=== PATIENT | female | born 1995 | race Caucasian/White ===

== ENCOUNTER → 2018-01-12 11:27 | Outpatient (REF) | payer BC, SELFPAY ==
[2018-01-13 14:28] LABS: Chlamydia Result Negative; GC Result Negative; Specimen Description CERVIX
== END ==
LOC: LBN 11:27
PROVIDERS: PCP Nurse Practitioner; Visit Provider Nurse Practitioner Family
DX: Z11.3 Encounter for screening for infections with a predominantly sexual mode of transmission (principal)
CPT/HCPCS: 87491; 87591

== ENCOUNTER 2018-11-17 14:58 | Outpatient (REF) | payer BC, SELFPAY ==
--- NOTE | 2018-11-17 14:45 | PAPFT_PTH ---
PATIENT: Leslie Lucero LOC: [facility] U#:[id number] AGE/SX: 23/F ROOM: RE11/17/[address]: LESIA Simpson : 1995 BED: DIS: 11/17/2018 SPEC #: [id number] RECD: 11/17/18 16:58 STATUS: ANH ORELLANA #: [id number] ASHLEY: 11/17/18 14:[address]: Mag Irwin DEPT: [facility] Cytology RECD BY: Kyra Cárdenas ENTERED: 11/17/18 16:58 SP TYPE: PAPFT DANNIELLE DR: Sapphire Vizcaino APRN Tissues: 1 - CX/ENDOCX FOR PAP SMEARS Procedures: PAP THIN PREP/UVM Screening Comments: [id number]
[2018-11-20 13:55] LABS: Chlamydia Result Negative; GC Result Negative
== END 2018-11-17 15:18 ==
LOC: LBN 14:58
PROVIDERS: PCP Nurse Practitioner; Visit Provider Nurse Practitioner Family
DX: Z11.3 Encounter for screening for infections with a predominantly sexual mode of transmission (principal); Z12.4 Encounter for screening for malignant neoplasm of cervix; Z11.51 Encounter for screening for human papillomavirus (HPV)
CPT/HCPCS: 87491; 87591; 88142

== ENCOUNTER 2019-09-20 10:30 | Outpatient (CLI) | payer BC, SELFPAY ==
--- NOTE | 2019-09-20 09:45 | DI.US_ITS ---
EXAM: US BREAST LT COMPLETE CLINICAL HISTORY: left breast lump,n63.20 TECHNIQUE: Ultrasound left breast performed using standard protocol. COMPARISON: No exams were available for comparison FINDINGS: In the area of concern in the left breast, no solid or cystic masses, hypoechoic foci, areas of abnor mal shadowing, or areas of skin thickening are identified. IMPRESSION: No sonographically suspicious finding in the imaged left breast. The findings were discussed with Dr. Gomez on the date of the examination. DATA REPOSITORY:
== END 2019-09-20 10:50 ==
PROVIDERS: PCP Nurse Practitioner; Visit Provider Nurse Practitioner Family
DX: N63.24 Unspecified lump in the left breast, lower inner quadrant (principal)
CPT/HCPCS: 76642

== ENCOUNTER 2020-04-30 15:37 | Outpatient (REF) | payer OTHER, SELFPAY ==
[2020-05-03 02:17] LABS: Chlamydia amplified RNA Negative (Negative); N gonorrhoeae amplified RNA Negative (Negative); Source CERVIX
== END 2020-04-30 15:57 ==
LOC: LBN 15:37
PROVIDERS: PCP Nurse Practitioner; Visit Provider Nurse Practitioner Women's Health
DX: Z11.3 Encounter for screening for infections with a predominantly sexual mode of transmission (principal)
CPT/HCPCS: 87491; 87591

== ENCOUNTER 2021-05-19 17:42 | Outpatient (REF) | payer OTHER, SELFPAY ==
[2021-05-21 16:19] LABS: COVID-19 RT-PCR UVMMC Result Negative (Negative)
== END 2021-05-19 17:43 | disposition home or self-care (01) ==
LOC: NCHCN 17:42
PROVIDERS: PCP Nurse Practitioner; Visit Provider Physician Assistant Medical
DX: Z20.822 Contact with and (suspected) exposure to COVID-19 (principal)
CPT/HCPCS: U0003

== ENCOUNTER 2021-07-23 12:24 | Outpatient (REF) | payer OTHER, SELFPAY ==
--- NOTE | 2021-07-23 10:15 | PAPFT_PTH ---
PATIENT: Leslie Lucero LOC: [facility] U#:[id number] AGE/SX: 25/F ROOM: RE07/23/[address]: LESIA Simpson : 1995 BED: DIS: 07/23/2021 SPEC #: [id number] RECD: 07/23/21 12:54 STATUS: ANH REQ #: [id number] ASHLEY: 07/23/21 10:[address]: Mag Irwin DEPT: [facility] Cytology RECD BY: Kyra Cárdenas ENTERED: 07/23/21 12:55 SP TYPE: PAPFT OTHR DR: Sapphire Vizcaino APRN Tissues: 1 - CX/ENDOCX FOR PAP SMEARS Procedures: PAP THIN PREP/UVM Screening Comments: [id number]
[2021-07-24 14:53] LABS: Chlamydia Result Negative (Negative); GC Result Negative (Negative)
== END 2021-07-23 12:25 | disposition home or self-care (01) ==
LOC: LBN 12:24
PROVIDERS: PCP Nurse Practitioner; Visit Provider Nurse Practitioner Family
DX: Z11.3 Encounter for screening for infections with a predominantly sexual mode of transmission (principal); Z12.4 Encounter for screening for malignant neoplasm of cervix
CPT/HCPCS: 87491; 87591; 88142

== ENCOUNTER 2022-05-11 04:03 | Outpatient (CLI) | payer OTHER, SELFPAY ==
[2022-05-11 16:28] LABS: Panorama Kit Sent via Fed Ex
[2022-05-11 16:39] LABS: Abs Immature Grans 0.03 10^3/uL (0.0-0.06); Absolute Basophil Count 0.06 10^3/uL (0.0-0.2); Absolute Eosinophil Count 0.12 10^3/uL (0.0-0.7); Absolute Lymphocyte Count 2.86 10^3/uL (1.2-3.4); Absolute Monocyte Count 0.57 10^3/uL (0.1-0.8); Absolute Neutrophil Count 5.97 10^3/uL (1.2-6.7); Basophils % 0.6; Eosinophils % 1.2; HCT 35.5 % (36.0-46.0); HGB 12.5 g/dL (11.2-15.7); Immature Grans % 0.3; Lymphocytes % 29.8; MCH 31.4 pg (27.0-33.0); MCHC 35.2 % (32.0-36.0); MCV 89 fL (80-95); MPV 10.6 fL (8.0-11.0); Monocytes % 5.9; Neutrophils % 62.2; Platelet Count 271 10^3/uL (130-400); RBC 3.98 10^6/uL (3.93-5.22); RDW 11.7 % (11.7-14.6); RDW-SD 37.9 fL; WBC 9.61 10^3/uL (4.4-10.8)
[2022-05-13 10:11] LABS: Varicella IgG Antibody Positive (See Note)
[2022-05-13 10:36] LABS: HIV-1/2 Ag & Ab Screen Negative (Negative)
[2022-05-13 12:51] LABS: Rubella IgG Ab (UVM) Equivocal (See Note)
[2022-05-13 16:04] LABS: Hepatitis B Surface Ag Negative (Negative)
[2022-05-13 16:26] LABS: Hepatitis C Ab w Rflx HCV PCR Negative (Negative)
[2022-05-13 19:30] LABS: Syphilis IgG w/Reflex Nonreactive (Nonreactive)
[2022-06-15 18:16] LABS: Result Summary NEGATIVE; Specimen WB Whole Blood
== END 2022-05-11 04:04 | disposition home or self-care (01) ==
LOC: LBO 04:03
PROVIDERS: PCP Nurse Practitioner; Visit Provider Advanced Practice Midwife
DX: Z34.91 Encounter for supervision of normal pregnancy, unspecified, first trimester (principal); Z36.89 Encounter for other specified antenatal screening; Z3A.11 11 weeks gestation of pregnancy
CPT/HCPCS: 36415; 81220; 81222; 86787; 86803; 86850; 86900; 86901; 87340; 87389; 85025; 86762; 86780

== ENCOUNTER 2022-05-11 16:47 | Outpatient (REF) | payer OTHER, SELFPAY ==
[2022-05-11 17:47] LABS: *AMPHETAMINES SCREEN URINE Negative (Negative); *BARBITURATES SCREEN URINE Negative (Negative); *BENZODIAZEPINES SCREEN URINE Negative (Negative); Cannabinoids THC Negative (Negative); Cocaine Screen,Urine Negative (Negative); METHADONE URINE SCREEN Negative (Negative); OPIATES URINE SCREEN Negative (Negative)
[2022-05-11 17:49] LABS: Tricyclic Antidepressants Negative (Negative)
[2022-05-19 09:25] LABS: Buprenorphine Negative ng/mL (Cutoff: 5.0); Norbuprenorphine Negative ng/mL (Cutoff: 2.5)
== END 2022-05-11 16:48 | disposition home or self-care (01) ==
LOC: LBN 16:47
PROVIDERS: PCP Nurse Practitioner; Visit Provider Advanced Practice Midwife
DX: Z34.91 Encounter for supervision of normal pregnancy, unspecified, first trimester (principal); Z3A.11 11 weeks gestation of pregnancy
CPT/HCPCS: 80307; 80348; 87086

== ENCOUNTER 2022-06-17 02:25 | Outpatient (CLI) | payer BC, SELFPAY ==
[2022-06-21 11:00] LABS: Cigarette smoking status non-Smoker; GA used in risk estimate Dates estimate; IVF Pregnancy No; Initial or repeat testing Initial testing; Insulin dependent diabetes No; Maternal Weight 115 lbs; Number of Fetuses 1; Physician Phone Number 802-748-7300; Prev Pregnancy w/NTD No; RECOMMENDED FOLLOW UP None.; Results Summary Normal risk
== END 2022-06-17 02:26 | disposition home or self-care (01) ==
LOC: LBO 02:25
PROVIDERS: PCP Nurse Practitioner; Visit Provider Advanced Practice Midwife
DX: Z34.92 Encounter for supervision of normal pregnancy, unspecified, second trimester (principal)
CPT/HCPCS: 36415; 82105

== ENCOUNTER 2022-06-22 13:53 | Outpatient (REF) | payer BC, SELFPAY ==
[2022-06-23 22:20] LABS: Influenza A RNA Result Negative (Negative); Influenza B RNA Result Negative (Negative); RSV RNA Result Positive (Negative)
[2022-06-23 22:31] LABS: COVID-19 RT-PCR UVMMC Result Negative (Negative)
== END 2022-06-22 13:54 | disposition home or self-care (01) ==
LOC: LBN 13:53
PROVIDERS: PCP Nurse Practitioner; Visit Provider Nurse Practitioner
DX: Z20.822 Contact with and (suspected) exposure to COVID-19 (principal); J02.9 Acute pharyngitis, unspecified; R05.9 Cough, unspecified; R06.02 Shortness of breath
CPT/HCPCS: 87631; U0003

== ENCOUNTER 2022-07-14 02:33 | Outpatient (CLI) | payer BC, SELFPAY ==
--- NOTE | 2022-07-14 08:00 | DI.US_ITS ---
Exam(s) US OB 2-3 TRIMESTER EXAM: US OB 2-3 TRIMESTER CLINICAL HISTORY: anatomy,Z34.92. TECHNIQUE: Transabdominal obstetrical ultrasound performed. COMPARISON: No exams were available for comparison FINDINGS: Number of fetuses: One. position: Variable Placental grade: 1 Placental location: Posterior. No evidence of previa. BIOMETRIC DATA: BPD: 50mm = 21+1 weeks HC: 188mm = 21+1 weeks AC: 173mm = 22+2 weeks FL: 39mm = 20+ 5 weeks Cisterna Magna: 3.8 mm Cerebellum: 2.2 cm EFW: 426 grms 77% Composite Age: 21+2 weeks EDC by US: December 03 Heart Rate: 145BPM Amniotic fluid : Amount of fluid is within normal limits. ANATOMICAL SURVEY: Four-chambered heart: Unremarkable. LVOT: Unremarkable. RVOT: Unremarkable. Left-sided stomach: Unremarkable. urinary bladder: Unremarkable. Bilateral kidneys: Dilatation of the left renal pelvis 7 millimeters related to the taken of th e right renal pelvis 5 millimeters. Three-vessel cord: Unremarkable. Cord insertion: Unremarkable. Posterior fossa:Unremarkable. ventricles: Unremarkable. nose: Unremarkable. lips: Unremarkable. palate: Unremarkable. spine: Unremarkable. Two arms and two legs: Unremarkable. IMPRESSION: 1. Single live intrauterine gestation with composite age 21 weeks 2 days.. 2. Bilateral dilatation of the renal pelves. Follow-up recommended. DATA REPOSITORY:
== END 2022-07-14 02:53 ==
PROVIDERS: PCP Nurse Practitioner; Visit Provider Advanced Practice Midwife
DX: Z34.92 Encounter for supervision of normal pregnancy, unspecified, second trimester (principal); Z3A.21 21 weeks gestation of pregnancy
CPT/HCPCS: 76805

== ENCOUNTER 2022-08-06 15:37 | Outpatient (REF) | payer BC, SELFPAY ==
[2022-08-06 15:01] LABS: Bilirubin Negative (Negative); Blood Small (Negative); Clarity Clear (Clear); Glucose Negative (Negative); Ketones Negative (Negative); Leukocyte Esterase Negative (Negative); Nitrite Negative (Negative); Specific Gravity 1.015 (1.005-1.025); Urobilinogen 0.2 mg/dL (Up to 0.2)
[2022-08-06 15:09] LABS: Bacteria Few HPF (Negative); C & S Indicated? C&S Done As Ordered; Epithelial Cells Few HPF (Negative); WBC 0-2 HPF (0-5)
[2022-08-06 16:22] LABS: Crystals Negative HPF (Negative); Mucus Negative (Negative)
== END 2022-08-06 15:38 | disposition home or self-care (01) ==
LOC: NCHCN 15:37
PROVIDERS: PCP Nurse Practitioner; Visit Provider Advanced Practice Midwife
DX: R30.0 Dysuria (principal)
CPT/HCPCS: 81003; 81015; 87086

== ENCOUNTER 2022-08-07 09:42 | Outpatient (REF) | payer BC, SELFPAY | END 2022-08-07 09:43 | disposition home or self-care (01) | LOC: LBN 09:42 | PROVIDERS: PCP Nurse Practitioner; Visit Provider Physician Assistant | DX: N39.0 Urinary tract infection, site not specified (principal) | CPT/HCPCS: 87086 ==

== ENCOUNTER 2022-08-07 10:03 | Outpatient (CLI) | payer BC, SELFPAY ==
[2022-08-07 10:27] VITALS: BP 110/68; PULSE 70; TEMP 36.9
--- NOTE | 2022-08-07 11:44 | PDOC.NST_ITS ---
Date of service: 08/07/22 Time of Service: 11:45 NST Evaluation Reason for NST Reasons for Nonstress Test: LABOR Gestational Age Gestational Age in Weeks and Days: 24 Weeks and 2Days Test and Monitor Explained Test/Monitor Explained: Test Explained, Monitor Explained and Patient Verbalized Understanding Vital Signs Blood Pressure: 110/68 Pulse: 70 Temperature: 98.4 F Urine Results Urine Protein: Negative Urine Ketones: Negative Urine Glucose: Negative Urine Blood: Positive (trace/small) NST Information Time on Monitor: 10:40 Date off Monitor: 08/07/22 Time off Monitor: 11:20 NST Interventions: PO Hydration Contraction Frequency: 0 NST Evaluation Patient States Movement: Present FHR Baseline: 140 Variability: Moderate 6-25 bpm Accelerations: 10x10 Decelerations: None NST Results: Reactive Note N/A NST Note Note: VPS and CT/GC collected Cvx closed/thick, cephalic presentation, not in the pelvis UA neg other then trace heme Right side round ligament pain, lower right side back discomfort likely musculoskeletal CVAT neg, UC&S preliminary report=no growth Advised to push PO fluid intake, tylenol, wall-sits and squats to stretch back and strengthen legs Keep appt with mixer operator vacuum pan salt as scheduled next week NST Reviewed and Verified by: Ashley Allred
[2022-08-07 11:50] VITALS: BP 110/68; PULSE 70; TEMP 36.9
[2022-08-09 12:42] LABS: Chlamydia Result Negative (Negative); GC Result Negative (Negative)
== END 2022-08-07 11:45 | disposition home or self-care (01) ==
LOC: BCD 10:03 → OBS 10:13
PROVIDERS: PCP Nurse Practitioner; Visit Provider Advanced Practice Midwife
DX: O47.02 False labor before 37 completed weeks of gestation, second trimester (principal); Z3A.24 24 weeks gestation of pregnancy
CPT/HCPCS: 59025; 87491; 87591; 87480; 87510; 87660

== ENCOUNTER 2022-09-01 03:28 | Outpatient (CLI) | payer BC, SELFPAY ==
[2022-09-01 08:49] LABS: HCT 35.5 % (36.0-46.0); HGB 12.1 g/dL (11.2-15.7); MCH 31.2 pg (27.0-33.0); MCHC 34.1 % (32.0-36.0); MCV 92 fL (80-95); MPV 10.9 fL (8.0-11.0); Platelet Count 212 10^3/uL (130-400); RBC 3.88 10^6/uL (3.93-5.22); RDW 12.7 % (11.7-14.6); RDW-SD 42.5 fL; WBC 8.74 10^3/uL (4.4-10.8)
[2022-09-01 10:02] LABS: Glucose,1 Hr (Glucola) 117 mg/dL (80-140)
== END 2022-09-01 03:29 | disposition home or self-care (01) ==
LOC: LBO 03:28
PROVIDERS: PCP Nurse Practitioner; Visit Provider Advanced Practice Midwife
DX: Z34.92 Encounter for supervision of normal pregnancy, unspecified, second trimester (principal); Z3A.27 27 weeks gestation of pregnancy
CPT/HCPCS: 36415; 82950; 85027

== ENCOUNTER 2022-09-07 11:47 | Outpatient (REF) | payer BC, SELFPAY ==
[2022-09-09 15:58] LABS: COVID-19 RT-PCR UVMMC Result Positive (Negative)
== END 2022-09-07 11:48 | disposition home or self-care (01) ==
LOC: NCHCN 11:47
PROVIDERS: PCP Nurse Practitioner; Visit Provider Physician Assistant Medical
DX: Z20.822 Contact with and (suspected) exposure to COVID-19 (principal)
CPT/HCPCS: U0003

== ENCOUNTER 2022-10-28 02:00 | Outpatient (CLI) | payer BC, SELFPAY ==
--- NOTE | 2022-10-28 07:00 | DI.US_ITS ---
Exam(s) US OB BORIS WEIGHT EXAM: US OB BORIS WEIGHT CLINICAL HISTORY: covid infection in ,U07.1,O98.513. TECHNIQUE: Transabdominal obstetrical ultrasound performed. COMPARISON: US US OB F/U FACIAL/LVOT/RVOT from 09/01/2022 FINDINGS: Number of fetuses: 1 position: CEPHALIC Placental location: There is a grade 2 fundal placenta. No evidence of previa. BIOMETRIC DATA: BPD: 8.64cm, 34weeks 6days HC: 33.23cm, 37weeks 6days AC: 32.17cm, 36weeks 1day FL: 6.75cm, 34weeks 5days EFW: 2,767.83g, 6lb 2.4oz, 44.9% Composite Age: 35weeks 6days GENO: 11/26/2022 Heart Rate: 131bpm Amniotic fluid index: 17.75cm. Visually, amount of fluid is within normal limits. IMPRESSION: 1. Single live intrauterine gestation as above. 2. Estimated weight is 2768gms. This is the 45th percentile. 3. Amniotic fluid index is 18 cm. Visually within normal limits. DATA REPOSITORY:
== END 2022-10-28 02:20 ==
LOC: DI 02:00
PROVIDERS: PCP Nurse Practitioner; Visit Provider Advanced Practice Midwife
DX: O98.513 Other viral diseases complicating pregnancy, third trimester (principal); U07.1 COVID-19
CPT/HCPCS: 76816

== ENCOUNTER 2022-10-29 16:17 | Outpatient (REF) | payer BC, SELFPAY ==
[2022-10-29 18:06] LABS: *AMPHETAMINES SCREEN URINE Negative (Negative); *BARBITURATES SCREEN URINE Negative (Negative); *BENZODIAZEPINES SCREEN URINE Negative (Negative); Cannabinoids THC Negative (Negative); Cocaine Screen,Urine Negative (Negative); METHADONE URINE SCREEN Negative (Negative); OPIATES URINE SCREEN Negative (Negative)
[2022-10-29 18:07] LABS: Tricyclic Antidepressants Negative (Negative)
[2022-11-05 08:42] LABS: Buprenorphine Negative ng/mL (Cutoff: 5.0); Norbuprenorphine Negative ng/mL (Cutoff: 2.5)
== END 2022-10-29 16:18 | disposition home or self-care (01) ==
LOC: LBN 16:17
PROVIDERS: PCP Nurse Practitioner; Visit Provider Advanced Practice Midwife
DX: Z34.93 Encounter for supervision of normal pregnancy, unspecified, third trimester (principal); Z36.85 Encounter for antenatal screening for Streptococcus B; Z3A.36 36 weeks gestation of pregnancy
CPT/HCPCS: 80307; 80348; 87081

== ENCOUNTER 2022-11-08 14:33 | Inpatient (IN) | payer BC, SELFPAY ==
[2022-11-08] VITALS (92 sets, daily range): BP systolic 102–140; BP diastolic 55–91; PULSE 72–106; RESP 16; TEMP 36.4–36.8; O2SAT 98–100
[2022-11-08 13:29] LABS: HCT 37.5 % (36.0-46.0); HGB 12.5 g/dL (11.2-15.7); MCH 30.7 pg (27.0-33.0); MCHC 33.3 % (32.0-36.0); MCV 92 fL (80-95); MPV 11.6 fL (8.0-11.0); Platelet Count 140 10^3/uL (130-400); RBC 4.07 10^6/uL (3.93-5.22); RDW 12.7 % (11.7-14.6); RDW-SD 43.2 fL; WBC 11.31 10^3/uL (4.4-10.8)
[2022-11-08 13:42] LABS: ALT 126 U/L (14-59); AST 95 U/L (15-37); Albumin 2.7 g/dL (3.4-5.0); Alkaline Phosphatase 275 U/L (46-116); Amylase 51 U/L (25-115); Anion Gap 7.6 mmol/L (3-11); BUN 8 mg/dL (7-18); Bilirubin, Total 0.4 mg/dL (0.2-1.0); CO2 27.4 mmol/L (21.0-32.0); CREATININE 0.9 mg/dL (0.55-1.02); Calcium 8.7 mg/dL (8.5-10.1); Chloride 104 mmol/L (98-107); Estimated GFR 90.98 (mL/min/1.73m2); Glucose 77 mg/dL (74-106); Lipase 22 U/L (16-77); Potassium 3.8 mmol/L (3.5-5.1); Sodium 139 mmol/L (136-145); Total Protein 7.1 g/dL (6.4-8.2)
--- NOTE | 2022-11-08 14:43 | W.PM.OBHPL1 ---
Date of service: 11/08/22 Time of Service: 14:20 Assessment and Plan Assessment and plan (1) HELLP syndrome (HELLP), third trimester: Status: Acute Assessment and plan: 1. Consult with Dr. Lewis done by phone. Will admit for induction of labor and infuse magnesium sulfate for potential seizure prevention 2. Will do repeat labs 6 hours after Magnesium starts with mag level, CMP and CBC 3. Will begin pitocin at 2 mu 4. Will begin Magnesium with 4 gm bolus then 2 gm / hour 5. Continuous EFM 6. Hourly intake and output 7. Will notify Dr. Lewis of any changes as indicated. KH OB-HPI Labor/Delivery History of Present Illness Reason for Visit: HELLP syndrome in third trimester Chief Complaint: Other (upper back pain started a couple of days ago). GENO Calculator Estimated Delivery Date Method Current WG Current Estimate 11/25/22 LMP (Certain) 37w 4d Other Estimates 11/25/22 Ultrasound #1 37w 4d Comments: Leslie Lucero presented for NST and assessment of persistent upper back pain that started Tuesday evening. She used tylenol and rest with moderate relief but called CNM today with continued pain and need to take tylenol every 4 hours. Denies RIDDLE, visual changes. States yesterday pain was across upper back and thought it was her ribs stretching but today slightly more on her right. Baby as been active. She is having occasional contractions. Denies LOF or vaginal bleeding. I reviewed that the labs done during NST are consistent with HELLP syndrome and it is indicated to induce labor and use magnesium sulfate for prevention of seizures. I reviewed risks of hemolysis and worsening liver disease and that delivery is considered the treatment. She agrees to admission and moving forward with induction and magnesium sulfate therapy. Dr. Lewis notified. Will do consult with anesthesia and inform pediatric provider collection systems technician of the plan for care. SIN History of Present Expected Delivery Route/Plan - CNM FOB/ - Jordan Lucero (first child) BB yes to circ Rubella immunity equivocal, offer MMR Hopes to use the tub and nitrous oxide, on line videos for childbirth preparation GBS negative Specific Issues/Plan 1. Hx scoliosis & right side sciatica, @ 16 wks pt reports no pain 2. Panorama: low risk x5, male, CF negative, declines SMA, desires AFP - neg 3. Rubella immunity is equivocal, discussed w/pt, accepts MMR 4. Pt's sister and niece have 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, [facility] [place] referral ordered 4a. Consult done 06/28/22, low to no risk to pt's fetus as pt does not appear to have the microdeletion in question 5. RSV infection at 18 wks of 6. Anatomy survey reveals bilateral renal dilation; repeat scan scheduled 09/01 Improved. 4.5 mm right, 6.2mm left 7. Right flank pain - maternal kidney US- mild bilateral hydronephrosis, right greater than left 8. COVID + 09/06/22, 36 week US scheduled-BORIS 18 and EFW 45%ile. 9. Brown spotting after intercourse x 1 day at 33 weeks. 10. Scoliosis - PT when she was younger. Met with Dev from anesthesia 10/29. No concerns. Assessment: History Reviewed & Current Informed Consent Informed Consent: Induction of Labor, Risk,Benefits,Alternatives Discussed and Other (Magnesium sulfate therapy) Review of Systems All systems reviewed & are unremarkable except as noted in HPI and below Constitutional Constitutional: Reports poor appetite Eyes Eyes: Reports as per HPI ENT Ears, Nose, Mouth, and Throat: Reports as per HPI Cardiovascular Cardiovascular: Reports as per HPI Respiratory Respiratory: Reports as per HPI Gastrointestinal Gastrointestinal: Reports as per HPI Genitourinary Genitourinary: Reports as per HPI Musculoskeletal Musculoskeletal: Reports as per HPI and Reports back pain (upper back) Neurologic Neurologic: Reports as per HPI Psychiatric Psychiatric: Reports as per HPI Hematologic/Lymphatic Hematologic/Lymphatic: Reports as per HPI PFSH All Active Problems (Updated 11/08/22 @ 14:53 by Nancy Diaz CNM) HELLP syndrome (HELLP), third trimester (Acute) (Acute) COVID-19 affecting in third trimester (Acute) + antigen 09/06 + PCR 09/07 symptoms began 09/06, declined paxlovid Right flank pain (Acute) Dysuria (Acute) Pyelectasis of fetus on ultrasound (Acute) RSV infection (Acute) at 18 weeks of Perioral dermatitis (Acute) Rubella non-immune status, antepartum (Acute) (Acute) Anxiety and depression (Chronic) Tobacco abuse (Acute 01/26/18) Acne (Acute 01/26/18) Medical History Allergic rhinitis Pollen and Dust Chronic headache Contraception (03/25/15) Family history of chromosomal abnormality 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 Positive test Scoliosis Surgical History Hope Teeth Extraction Family History Mother Headache Mental disorder Panic Attacks Paternal Grandfather Myocardial infarction Suddenly of Stroke or Heart Attack Stroke Paternal Grandmother Neoplasm Breast cancer Cancer neck cancer Maternal Aunt Cancer ovarian Maternal Aunt Cancer kidney cancer Maternal Grandmother Diabetes Social History Smoking/Tobacco Use Status: Former Tobacco Use Quit Date: 12/26/19 Tobacco: How many years used: 6 Smoking risk assessment performed?: Yes Drug use: Never Female Reproductive History Menstrual Duration of menses: 3-5 days control method: pills History History 1 Para 0 Hx # Term Pregnancies 0 Multiple births 0 Hx # Pregnancies 0 Ectopic pregnancies 0 AB induced 0 Hx Number of Living Children 0 AB spontaneous 0 Meds Allergies and Home Medications Allergies Allergy/AdvReac Type Severity Reaction Status Date / Time pollen Allergy sneezing, Uncoded 11/08/22 14:50 itchy eyes Home Medications Medication Instructions Recorded Confirmed Type triamcinolone acetonide 0.1 % 1 applic topical DAILY PRN 08/12/22 11/04/22 History topical cream prenat.vits,jo,yhp-xasc-ivozt 1 tab PO DAILY #90 tabs 08/20/22 11/04/22 Rx cholecalciferol (vitamin D3) 50 50 mcg PO DAILY 09/30/22 11/04/22 History mcg (2,000 unit) tablet Exam Physical Exam Vital signs: Pulse BP 90 130/84 11/08/22 13:33 11/08/22 13:33 Vital Signs Reviewed: Yes Constitutional Constitutional: mild distress (uncomfortable due to back pain) Detailed Labor and Delivery Exam Dilation: 2 Effacement (%): 80 station: -1 Position: SYBIL Cervix position: posterior Consistency: soft Barnes Score: Cervical Points Exam 0 1 2 3 Dilation Closed 1-2cm 3-4 cm 5-6cm Effacement 0-30% 40-50% 60-70% 80% Consistency Firm Medium Soft Station -3 -2 -1,0 +1,+2 Position Posterior Mid Anterior BARNES Score(Cervical Ripeness Score): 8 Amniotic Membrane Status: Intact Monitor Mode: External Contraction Frequency(min): irregular Contraction Duration(sec): irregular Contraction Intensity: Mild Fetus A Heart Rate Baseline: 120 Monitor Accelerations: 15 X 15 Monitor Decelerations: None Variability: Moderate (6-25 BPM) Categories: Category I Est. Weight: 6 lb 6 oz HEENT Exam HEENT Exam: Normal Neck Exam Neck Exam: Normal Chest/Brest/Axilla Exam Chest Exam: Normal Breast Exam Breast Exam: Not Done Respiratory Exam Respiratory Exam: Normal Cardiovascular Exam Cardiovascular Exam: Abnormal (mild BP elevation noted) Abdominal Exam Abdominal Exam: Normal (gravid uterus, size equals dates) Rectal Exam Rectal Exam: Not Done Exam Exam: Normal Extremities Exam Extremities Exam: Normal Back/Spine/Pelvis Exam Back Exam: Normal Pelvis Adequate: Yes Skin Exam Skin Exam: Normal (no evidence of jaundice) Neurological Exam Neurological Exam: Normal Psychiatric Exam Psychiatric Exam: Normal Results Results Group Beta Strep: Negative Blood Type: O+ Rubella Status: Nonimmune Varicella Immunity: Immune Lab Results: Hepatitis B&C neg, Syphilis neg, HIV neg, GC CT neg, cfDNA Low Risk male gender, 1H GTT 117 Abnormal Lab Findings: Abnormal Labs 11/08/22 11/08/22 13:18 13:18 WBC 11.31 H MPV 11.6 H AST 95 H ALT 126 H Alkaline Phosphatase 275 H Albumin 2.7 L Risk Assessment Risk for Shoulder Dystocia Historical/Initial OB: NEGATIVE FOR: Pelvic Abnormality, Pre- BMI>30, Previous Shoulder Dystocia or Previous Macrosomia 40 Weeks: NEGATIVE FOR: EFW> 4500 gms, Maternal Weight Gain >40lb or Post Dates Date/Initial: 05/10/22 Delivery Plan @ 40 wks: vaginal delivery Risk for Pre-Eclampsia Date Initiated/Initials: Yes, if one or more: NEGATIVE FOR: Hx Pre-E/Gest HTN, Chronic HTN, Multiple Gestation, Pre-gestational DM, Renal Disease, Systemic Lupus or APA Syndrome Yes, if 2 or more: POSITIVE FOR: Nulliparity; NEGATIVE FOR: Age>= 35 yrs, >10yr btwn pregnancies, BMI>30, ethinicty, Mother/Sister w/ Pre-E or Previous IUGR Risk for Post- Hemorrhage Initial: NEGATIVE FOR: Multiple Gestation, Previous PPH, Known Clotting Deficiency, Grand Multiparity or Anticoagulation At Risk?: Yes (mildly low platelets on admission) Date/Initials: 05/10/22 Risks Reviewed Risks Reviewed Upon Admission: Yes
[2022-11-08] MEDS: MAGNESIUM SULFATE 20 GM/500 ML BAG IV ×2 (15:15→23:11)
[2022-11-08] MEDS: Oxytocin/Normal Saline 30 UNIT/500 ML BAG 2 UNITS IV (15:30)
[2022-11-08] MEDS: Lactated Ringers 1,000 ML 125 ML IV ×2 (15:46→22:51)
--- NOTE | 2022-11-08 16:29 | W.OBNST ---
Date of service: 11/08/22 Time of Service: 14:15 NST Evaluation Reason for NST Reasons for Nonstress Test: OTHER, SEE COMMENT Reason for NST Other: RUQ pain Gestational Age Gestational Age in Weeks and Days: 42 Weeks and 0Days Test and Monitor Explained Test/Monitor Explained: Test Explained, Monitor Explained and Patient Verbalized Understanding Vital Signs Blood Pressure: 136/91 Pulse: 86 Temperature: 97.9 F Urine Results Urine Protein: Negative Urine Ketones: Negative Urine Glucose: Negative Urine Blood: Negative NST Information Date on Monitor: 11/08/22 Time on Monitor: 13:05 Date off Monitor: 11/08/22 Time off Monitor: 14:15 Total Time on Monitor: 70 NST Interventions: PO Hydration and Notify Provider Contraction Frequency: occasional NST Evaluation Patient States Movement: Present FHR Baseline: 130 Variability: Moderate 6-25 bpm Accelerations: 15x15 Decelerations: None NST Results: Reactive Note Ultrasound Done: N/A. NST Note Note: NST is reactive and reassuring. Plan to admit for induction of labor. See H&P NST Reviewed and Verified by: Nancy Diaz
--- NOTE | 2022-11-08 16:37 | PGE_ITS ---
Date of service: 11/08/22 Time of Service: 16:38 Informed Consent Informed Consent: Induction of Labor, Risk,Benefits,Alternatives Discussed and Other (Magnesium sulfate therapy) Pelvic Exam Comments: VE deferred Contractions Monitor Mode: External Contraction Frequency(min): 2-5 Contraction Duration(sec): 60-90 Intensity: Mild/Moderate Fetus A Monitor: External (US) Heart Rate Baseline: 105 Variability: Moderate (6-25 BPM) Categories: Category II (low baseline, likely due to Mag sulfate) Accelerations: Present Decelerations: None Amniotic Membrane Status: Intact Assessment and Plan Assessment and plan (1) HELLP syndrome (HELLP), third trimester: Status: Acute Assessment and plan: 1. magnesium bolus is done and now infusing at 2G/Hr 2. Pitocin is being increased every 30 minutes 3. FHR baseline has decreased. 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 Lewis who agrees that this is likely due to Magnesium sulfate and does not feel we need to change current plan of care 4. Will continue to increase pitocin and expect NVD. KH Objective Abnormal lab results 11/08/22 11/08/22 Range/Units 13:18 13:18 WBC 11.31 H (4.4-10.8) 10^3/uL MPV 11.6 H (8.0-11.0) fL AST 95 H (15-37) U/L ALT 126 H (14-59) U/L Alkaline Phosphatase 275 H (46-116) U/L Albumin 2.7 L (3.4-5.0) g/dL Temp Pulse Resp BP Pulse Ox 97.9 F 78 16 102/61 100 11/08/22 15:50 11/08/22 16:36 11/08/22 16:15 11/08/22 16:35 11/08/22 16:36 Laboratory Results WBC 11.31 10^3/uL (4.4-10.8) H 11/08/22 13:18 RBC 4.07 10^6/uL (3.93-5.22) 11/08/22 13:18 Hgb 12.5 g/dL (11.2-15.7) 11/08/22 13:18 Hct 37.5 % (36.0-46.0) 11/08/22 13:18 MCV 92 fL (80-95) 11/08/22 13:18 MCH 30.7 pg (27.0-33.0) 11/08/22 13:18 MCHC 33.3 % (32.0-36.0) 11/08/22 13:18 RDW 12.7 % (11.7-14.6) 11/08/22 13:18 Plt Count 140 10^3/uL (130-400) 11/08/22 13:18 MPV 11.6 fL (8.0-11.0) H 11/08/22 13:18 Sodium 139 mmol/L (136-145) 11/08/22 13:18 Potassium 3.8 mmol/L (3.5-5.1) 11/08/22 13:18 Chloride 104 mmol/L (98-107) 11/08/22 13:18 Carbon Dioxide 27.4 mmol/L (21.0-32.0) 11/08/22 13:18 Anion Gap 7.6 mmol/L (3-11) 11/08/22 13:18 BUN 8 mg/dL (7-18) 11/08/22 13:18 Creatinine 0.9 mg/dL (0.55-1.02) 11/08/22 13:18 Est GFR (CKD-EPI 2020) 90.98 (mL/min/1.73m2) 11/08/22 13:18 Glucose 77 mg/dL (74-106) 11/08/22 13:18 Calcium 8.7 mg/dL (8.5-10.1) 11/08/22 13:18 Total Bilirubin 0.4 mg/dL (0.2-1.0) 11/08/22 13:18 AST 95 U/L (15-37) H 11/08/22 13:18 ALT 126 U/L (14-59) H 11/08/22 13:18 Alkaline Phosphatase 275 U/L (46-116) H 11/08/22 13:18 Total Protein 7.1 g/dL (6.4-8.2) 11/08/22 13:18 Albumin 2.7 g/dL (3.4-5.0) L 11/08/22 13:18 Amylase 51 U/L (25-115) 11/08/22 13:18 Lipase 22 U/L (16-77) 11/08/22 13:18 Patient ABO/Rh O Positive 11/08/22 14:47 Antibody Screen NEGATIVE 11/08/22 14:47 Subjective Interval history since last seen: Leslie is doing well. She is aware of contractions but is doing well with them. KH Interventions Induction Indication: PreEclampsia (HELLP), Type of Induction: Pitocin, Induction Note: Pitocin induction was recommended and accepted by patient due to elevated liver enzymes and mildly low platelet with mild BP elevation. Risks and benefits as well as alternatives have been reviewed. KH . Results Hemoglobin/Hematocrit: Hgb 12.5 g/dL (11.2-15.7) 11/08/22 13:18 Hct 37.5 % (36.0-46.0) 11/08/22 13:18 Abnormal Lab Findings: Abnormal Labs 11/08/22 11/08/22 13:18 13:18 WBC 11.31 H MPV 11.6 H AST 95 H ALT 126 H Alkaline Phosphatase 275 H Albumin 2.7 L
--- NOTE | 2022-11-08 19:03 | W.PM.OBNL1 ---
Date of service: 11/08/22 Time of Service: 19:04 Informed Consent Informed Consent: Induction of Labor, Risk,Benefits,Alternatives Discussed and Other (Magnesium sulfate therapy) Pelvic Exam Dilation: 3 Effacement (%): 80 station: -1 Cervix Position: posterior Consistency: soft Contractions Monitor Mode: External Contraction Frequency(min): 2-6 Contraction Duration(sec): 60 Intensity: Mild/Moderate Fetus A Monitor: External (US) Heart Rate Baseline: 110 Variability: Moderate (6-25 BPM) Categories: Category I Accelerations: Present Decelerations: None Amniotic Membrane Status: Intact Assessment and Plan Assessment and plan (1) HELLP syndrome (HELLP), third trimester: Status: Acute Assessment and plan: 1. Continue to increase pitocin to achieve active labor 2. Expect NVD 3. will get repeat labs at 2114. Objective Abnormal lab results 11/08/22 11/08/22 Range/Units 13:18 13:18 WBC 11.31 H (4.4-10.8) 10^3/uL MPV 11.6 H (8.0-11.0) fL AST 95 H (15-37) U/L ALT 126 H (14-59) U/L Alkaline Phosphatase 275 H (46-116) U/L Albumin 2.7 L (3.4-5.0) g/dL Temp Pulse Resp BP Pulse Ox 97.5 F L 76 16 115/70 99 11/08/22 17:15 11/08/22 18:33 11/08/22 18:15 11/08/22 18:33 11/08/22 18:15 Laboratory Results WBC 11.31 10^3/uL (4.4-10.8) H 11/08/22 13:18 RBC 4.07 10^6/uL (3.93-5.22) 11/08/22 13:18 Hgb 12.5 g/dL (11.2-15.7) 11/08/22 13:18 Hct 37.5 % (36.0-46.0) 11/08/22 13:18 MCV 92 fL (80-95) 11/08/22 13:18 MCH 30.7 pg (27.0-33.0) 11/08/22 13:18 MCHC 33.3 % (32.0-36.0) 11/08/22 13:18 RDW 12.7 % (11.7-14.6) 11/08/22 13:18 Plt Count 140 10^3/uL (130-400) 11/08/22 13:18 MPV 11.6 fL (8.0-11.0) H 11/08/22 13:18 Sodium 139 mmol/L (136-145) 11/08/22 13:18 Potassium 3.8 mmol/L (3.5-5.1) 11/08/22 13:18 Chloride 104 mmol/L (98-107) 11/08/22 13:18 Carbon Dioxide 27.4 mmol/L (21.0-32.0) 11/08/22 13:18 Anion Gap 7.6 mmol/L (3-11) 11/08/22 13:18 BUN 8 mg/dL (7-18) 11/08/22 13:18 Creatinine 0.9 mg/dL (0.55-1.02) 11/08/22 13:18 Est GFR (CKD-EPI 2020) 90.98 (mL/min/1.73m2) 11/08/22 13:18 Glucose 77 mg/dL (74-106) 11/08/22 13:18 Calcium 8.7 mg/dL (8.5-10.1) 11/08/22 13:18 Total Bilirubin 0.4 mg/dL (0.2-1.0) 11/08/22 13:18 AST 95 U/L (15-37) H 11/08/22 13:18 ALT 126 U/L (14-59) H 11/08/22 13:18 Alkaline Phosphatase 275 U/L (46-116) H 11/08/22 13:18 Total Protein 7.1 g/dL (6.4-8.2) 11/08/22 13:18 Albumin 2.7 g/dL (3.4-5.0) L 11/08/22 13:18 Amylase 51 U/L (25-115) 11/08/22 13:18 Lipase 22 U/L (16-77) 11/08/22 13:18 Patient ABO/Rh O Positive 11/08/22 14:47 Antibody Screen NEGATIVE 11/08/22 14:47 Vital Signs Reviewed: Yes Subjective Interval history since last seen: Leslie is having some discomfort with contractions. She is interested in VE. No LOF or show. Is also asking for tylenol for upper back pain. KH Results Hemoglobin/Hematocrit: Hgb 12.5 g/dL (11.2-15.7) 11/08/22 13:18 Hct 37.5 % (36.0-46.0) 11/08/22 13:18 Abnormal Lab Findings: Abnormal Labs 11/08/22 11/08/22 13:18 13:18 WBC 11.31 H MPV 11.6 H AST 95 H ALT 126 H Alkaline Phosphatase 275 H Albumin 2.7 L
[2022-11-08] MEDS: Acetaminophen 325 MG TAB 650 MG PO (19:14)
[2022-11-08 20:14] LABS: PROTEIN < 6.0 mg/dL
[2022-11-08 20:15] LABS: COMMENT (LAB VIEW ONLY) < 13.00 mg/dL
[2022-11-08 21:19] LABS: Abs Immature Grans 0.07 10^3/uL (0.0-0.06); Absolute Basophil Count 0.06 10^3/uL (0.0-0.2); Absolute Eosinophil Count 0.03 10^3/uL (0.0-0.7); Absolute Monocyte Count 0.85 10^3/uL (0.1-0.8); Absolute Neutrophil Count 9.96 10^3/uL (1.2-6.7); Basophils % 0.5; Eosinophils % 0.2; HCT 39.3 % (36.0-46.0); HGB 13.5 g/dL (11.2-15.7); Immature Grans % 0.5; Lymphocytes % 15.2; MCH 31.5 pg (27.0-33.0); MCHC 34.4 % (32.0-36.0); MCV 92 fL (80-95); MPV 11.8 fL (8.0-11.0); Monocytes % 6.6; Platelet Count 115 10^3/uL (130-400); RBC 4.29 10^6/uL (3.93-5.22); RDW 12.8 % (11.7-14.6); WBC 12.93 10^3/uL (4.4-10.8)
[2022-11-08 21:20] LABS: Absolute Lymphocyte Count 1.97 10^3/uL (1.2-3.4)
[2022-11-08 21:33] LABS: ALT 156 U/L (14-59); AST 124 U/L (15-37); Albumin 2.7 g/dL (3.4-5.0); Alkaline Phosphatase 278 U/L (46-116); Anion Gap 8.5 mmol/L (3-11); BUN 6 mg/dL (7-18); Bilirubin, Total 0.5 mg/dL (0.2-1.0); CO2 25.5 mmol/L (21.0-32.0); CREATININE 0.8 mg/dL (0.55-1.02); Calcium 8.3 mg/dL (8.5-10.1); Chloride 102 mmol/L (98-107); Glucose 95 mg/dL (74-106); Potassium 4.3 mmol/L (3.5-5.1); Sodium 136 mmol/L (136-145); Total Protein 7.1 g/dL (6.4-8.2)
--- NOTE | 2022-11-08 21:43 | W.PM.OBNL1 ---
Date of service: 11/08/22 Time of Service: 21:43 Informed Consent Informed Consent: Induction of Labor, Risk,Benefits,Alternatives Discussed and Other (Magnesium sulfate therapy) Contractions Monitor Mode: External Contraction Frequency(min): irregular 2-8 Contraction Duration(sec): 60-90 Intensity: Mild/Moderate Fetus A Monitor: External (US) Heart Rate Baseline: 120 Variability: Moderate (6-25 BPM) Categories: Category I Accelerations: 15 X 15 Decelerations: None Amniotic Membrane Status: Intact Assessment and Plan Assessment and plan (1) HELLP syndrome (HELLP), third trimester: Status: Acute Assessment and plan: 1. Reviewed labs with Dr. Lewis, is aware of AST/ALT/Platelet count 2. Dr. Lewis agrees that we can increase pitocin up to 30 mu 3. Will repeat all labs in 6 hours and reassess 4. Continue to expect NVD. Have reviewed increased risk for bleeding with patient and staff. 5. will reassess cervix in next 1-2 hours and consider AROM with IUPC placement. KH Objective Abnormal lab results 11/08/22 11/08/22 11/08/22 Range/Units 13:18 13:18 21:10 WBC 11.31 H (4.4-10.8) 10^3/uL Plt Count (130-400) 10^3/uL MPV 11.6 H (8.0-11.0) fL Absolute Neutrophils (1.2-6.7) 10^3/uL Absolute Monocytes (0.1-0.8) 10^3/uL BUN (7-18) mg/dL Calcium (8.5-10.1) mg/dL Magnesium 7.0 H (1.8-2.4) mg/dL AST 95 H (15-37) U/L ALT 126 H (14-59) U/L Alkaline Phosphatase 275 H (46-116) U/L Albumin 2.7 L (3.4-5.0) g/dL 11/08/22 11/08/22 Range/Units 21:10 21:10 WBC 12.93 H (4.4-10.8) 10^3/uL Plt Count 115 L (130-400) 10^3/uL MPV 11.8 H (8.0-11.0) fL Absolute Neutrophils 9.96 H (1.2-6.7) 10^3/uL Absolute Monocytes 0.85 H (0.1-0.8) 10^3/uL BUN 6 L (7-18) mg/dL Calcium 8.3 L (8.5-10.1) mg/dL Magnesium (1.8-2.4) mg/dL AST 124 H (15-37) U/L ALT 156 H (14-59) U/L Alkaline Phosphatase 278 H (46-116) U/L Albumin 2.7 L (3.4-5.0) g/dL Temp Pulse Resp BP Pulse Ox 98.2 F 82 16 120/77 100 11/08/22 21:15 11/08/22 21:38 11/08/22 21:15 11/08/22 21:34 11/08/22 21:38 Laboratory Results WBC 12.93 10^3/uL (4.4-10.8) H 11/08/22 21:10 RBC 4.29 10^6/uL (3.93-5.22) 11/08/22 21:10 Hgb 13.5 g/dL (11.2-15.7) 11/08/22 21:10 Hct 39.3 % (36.0-46.0) 11/08/22 21:10 MCV 92 fL (80-95) 11/08/22 21:10 MCH 31.5 pg (27.0-33.0) 11/08/22 21:10 MCHC 34.4 % (32.0-36.0) 11/08/22 21:10 RDW 12.8 % (11.7-14.6) 11/08/22 21:10 Plt Count 115 10^3/uL (130-400) L 11/08/22 21:10 MPV 11.8 fL (8.0-11.0) H 11/08/22 21:10 Immature Gran % 0.5 11/08/22 21:10 Neutrophils % 77.0 11/08/22 21:10 Lymphocytes % 15.2 11/08/22 21:10 Monocytes % 6.6 11/08/22 21:10 Eosinophils % 0.2 11/08/22 21:10 Basophils % 0.5 11/08/22 21:10 Nucleated RBC % 0.0 % (0.0-0.3) 11/08/22 21:10 Absolute Neutrophils 9.96 10^3/uL (1.2-6.7) H 11/08/22 21:10 Absolute Lymphocytes 1.97 10^3/uL (1.2-3.4) 11/08/22 21:10 Absolute Monocytes 0.85 10^3/uL (0.1-0.8) H 11/08/22 21:10 Absolute Eosinophils 0.03 10^3/uL (0.0-0.7) 11/08/22 21:10 Absolute Basophils 0.06 10^3/uL (0.0-0.2) 11/08/22 21:10 Sodium 136 mmol/L (136-145) 11/08/22 21:10 Potassium 4.3 mmol/L (3.5-5.1) 11/08/22 21:10 Chloride 102 mmol/L (98-107) 11/08/22 21:10 Carbon Dioxide 25.5 mmol/L (21.0-32.0) 11/08/22 21:10 Anion Gap 8.5 mmol/L (3-11) 11/08/22 21:10 BUN 6 mg/dL (7-18) L 11/08/22 21:10 Creatinine 0.8 mg/dL (0.55-1.02) 11/08/22 21:10 Est GFR (CKD-EPI 2020) 104.80 (mL/min/1.73m2) 11/08/22 21:10 Glucose 95 mg/dL (74-106) 11/08/22 21:10 Calcium 8.3 mg/dL (8.5-10.1) L 11/08/22 21:10 Magnesium 7.0 mg/dL (1.8-2.4) H 11/08/22 21:10 Total Bilirubin 0.5 mg/dL (0.2-1.0) 11/08/22 21:10 AST 124 U/L (15-37) H 11/08/22 21:10 ALT 156 U/L (14-59) H 11/08/22 21:10 Alkaline Phosphatase 278 U/L (46-116) H 11/08/22 21:10 Total Protein 7.1 g/dL (6.4-8.2) 11/08/22 21:10 Albumin 2.7 g/dL (3.4-5.0) L 11/08/22 21:10 Amylase 51 U/L (25-115) 11/08/22 13:18 Lipase 22 U/L (16-77) 11/08/22 13:18 Ur Random Creatinine < 13.00 mg/dL 11/08/22 13:10 U Random Total Protein < 6.0 mg/dL 11/08/22 13:10 U [place] Prot/Creat Ratio 11/08/22 13:10 Patient ABO/Rh O Positive 11/08/22 14:47 Antibody Screen NEGATIVE 11/08/22 14:47 Subjective Interval history since last seen: Had some relief from PO tylenol. Denies RIDDLE, visual disturbance. Continues to have upper back pain. Is voiding is large amounts. States contractions are cramping Results Hemoglobin/Hematocrit: Hgb 13.5 g/dL (11.2-15.7) 11/08/22 21:10 Hct 39.3 % (36.0-46.0) 11/08/22 21:10 Abnormal Lab Findings: Abnormal Labs 11/08/22 11/08/22 11/08/22 13:18 13:18 21:10 WBC 11.31 H Plt Count MPV 11.6 H Absolute Neutrophils Absolute Monocytes BUN Calcium Magnesium 7.0 H AST 95 H ALT 126 H Alkaline Phosphatase 275 H Albumin 2.7 L 11/08/22 11/08/22 21:10 21:10 WBC 12.93 H Plt Count 115 L MPV 11.8 H Absolute Neutrophils 9.96 H Absolute Monocytes 0.85 H BUN 6 L Calcium 8.3 L Magnesium AST 124 H ALT 156 H Alkaline Phosphatase 278 H Albumin 2.7 L
--- NOTE | 2022-11-08 22:10 | PGE_ITS ---
Date of service: 11/08/22 Time of Service: 22:10 Informed Consent Informed Consent: Induction of Labor, Risk,Benefits,Alternatives Discussed and Other (Magnesium sulfate therapy) Pelvic Exam Dilation: 4 Effacement (%): 80 station: -1 Cervix Position: posterior Consistency: soft Contractions Monitor Mode: Internal Contraction Frequency(min): irregular Contraction Duration(sec): 60 Intensity: Moderate IUPC resting tone (mmHg): 1 IUPC peak pressure (mmHg): 70 Fetus A Monitor: External (US) Heart Rate Baseline: 120 Variability: Moderate (6-25 BPM) Categories: Category I Accelerations: Present Decelerations: None Amniotic Membrane Status: Ruptured Rupture Method: Artifical Amniotic Fluid: Clear Amount: large Date of Membrane Rupture: 11/08/22 Time of Membrane Rupture: 22:05 Assessment and Plan Assessment and plan (1) HELLP syndrome (HELLP), third trimester: Status: Acute Assessment and plan: 1. continue present management, can increase pitocin to 30 mu per consult with Dr. Lewis 2. expect vaginal delivery Objective Abnormal lab results 11/08/22 11/08/22 11/08/22 Range/Units 13:18 13:18 21:10 WBC 11.31 H (4.4-10.8) 10^3/uL Plt Count (130-400) 10^3/uL MPV 11.6 H (8.0-11.0) fL Absolute Neutrophils (1.2-6.7) 10^3/uL Absolute Monocytes (0.1-0.8) 10^3/uL BUN (7-18) mg/dL Calcium (8.5-10.1) mg/dL Magnesium 7.0 H (1.8-2.4) mg/dL AST 95 H (15-37) U/L ALT 126 H (14-59) U/L Alkaline Phosphatase 275 H (46-116) U/L Albumin 2.7 L (3.4-5.0) g/dL 11/08/22 11/08/22 Range/Units 21:10 21:10 WBC 12.93 H (4.4-10.8) 10^3/uL Plt Count 115 L (130-400) 10^3/uL MPV 11.8 H (8.0-11.0) fL Absolute Neutrophils 9.96 H (1.2-6.7) 10^3/uL Absolute Monocytes 0.85 H (0.1-0.8) 10^3/uL BUN 6 L (7-18) mg/dL Calcium 8.3 L (8.5-10.1) mg/dL Magnesium (1.8-2.4) mg/dL AST 124 H (15-37) U/L ALT 156 H (14-59) U/L Alkaline Phosphatase 278 H (46-116) U/L Albumin 2.7 L (3.4-5.0) g/dL Temp Pulse Resp BP Pulse Ox 98.2 F 85 16 120/77 100 11/08/22 21:15 11/08/22 21:53 11/08/22 21:15 11/08/22 21:34 11/08/22 21:53 Laboratory Results WBC 12.93 10^3/uL (4.4-10.8) H 11/08/22 21:10 RBC 4.29 10^6/uL (3.93-5.22) 11/08/22 21:10 Hgb 13.5 g/dL (11.2-15.7) 11/08/22 21:10 Hct 39.3 % (36.0-46.0) 11/08/22 21:10 MCV 92 fL (80-95) 11/08/22 21:10 MCH 31.5 pg (27.0-33.0) 11/08/22 21:10 MCHC 34.4 % (32.0-36.0) 11/08/22 21:10 RDW 12.8 % (11.7-14.6) 11/08/22 21:10 Plt Count 115 10^3/uL (130-400) L 11/08/22 21:10 MPV 11.8 fL (8.0-11.0) H 11/08/22 21:10 Immature Gran % 0.5 11/08/22 21:10 Neutrophils % 77.0 11/08/22 21:10 Lymphocytes % 15.2 11/08/22 21:10 Monocytes % 6.6 11/08/22 21:10 Eosinophils % 0.2 11/08/22 21:10 Basophils % 0.5 11/08/22 21:10 Nucleated RBC % 0.0 % (0.0-0.3) 11/08/22 21:10 Absolute Neutrophils 9.96 10^3/uL (1.2-6.7) H 11/08/22 21:10 Absolute Lymphocytes 1.97 10^3/uL (1.2-3.4) 11/08/22 21:10 Absolute Monocytes 0.85 10^3/uL (0.1-0.8) H 11/08/22 21:10 Absolute Eosinophils 0.03 10^3/uL (0.0-0.7) 11/08/22 21:10 Absolute Basophils 0.06 10^3/uL (0.0-0.2) 11/08/22 21:10 Sodium 136 mmol/L (136-145) 11/08/22 21:10 Potassium 4.3 mmol/L (3.5-5.1) 11/08/22 21:10 Chloride 102 mmol/L (98-107) 11/08/22 21:10 Carbon Dioxide 25.5 mmol/L (21.0-32.0) 11/08/22 21:10 Anion Gap 8.5 mmol/L (3-11) 11/08/22 21:10 BUN 6 mg/dL (7-18) L 11/08/22 21:10 Creatinine 0.8 mg/dL (0.55-1.02) 11/08/22 21:10 Est GFR (CKD-EPI 2020) 104.80 (mL/min/1.73m2) 11/08/22 21:10 Glucose 95 mg/dL (74-106) 11/08/22 21:10 Calcium 8.3 mg/dL (8.5-10.1) L 11/08/22 21:10 Magnesium 7.0 mg/dL (1.8-2.4) H 11/08/22 21:10 Total Bilirubin 0.5 mg/dL (0.2-1.0) 11/08/22 21:10 AST 124 U/L (15-37) H 11/08/22 21:10 ALT 156 U/L (14-59) H 11/08/22 21:10 Alkaline Phosphatase 278 U/L (46-116) H 11/08/22 21:10 Total Protein 7.1 g/dL (6.4-8.2) 11/08/22 21:10 Albumin 2.7 g/dL (3.4-5.0) L 11/08/22 21:10 Amylase 51 U/L (25-115) 11/08/22 13:18 Lipase 22 U/L (16-77) 11/08/22 13:18 Ur Random Creatinine < 13.00 mg/dL 11/08/22 13:10 U Random Total Protein < 6.0 mg/dL 11/08/22 13:10 U [place] Prot/Creat Ratio 11/08/22 13:10 Patient ABO/Rh O Positive 11/08/22 14:47 Antibody Screen NEGATIVE 11/08/22 14:47 Vital Signs Reviewed: Yes Subjective Interval history since last seen: Leslie agrees to moving forward with AROM and IUPC placement. Is voiding in large amounts. I have reviewed her most recent lab values with her and reviewed that we are doing the right thing to get baby and placenta delivered. Denies questions and is happy to move forward. K[facility] Interventions Augmentation (continuing to increase pitocin. will increase to max of 30 mu if needed per consult with Dr. Lewis) , Pitocin rate (mU/min): 20 AROM for clear fluid and IUPC placed . Results Hemoglobin/Hematocrit: Hgb 13.5 g/dL (11.2-15.7) 11/08/22 21:10 Hct 39.3 % (36.0-46.0) 11/08/22 21:10 Abnormal Lab Findings: Abnormal Labs 11/08/22 11/08/22 11/08/22 13:18 13:18 21:10 WBC 11.31 H Plt Count MPV 11.6 H Absolute Neutrophils Absolute Monocytes BUN Calcium Magnesium 7.0 H AST 95 H ALT 126 H Alkaline Phosphatase 275 H Albumin 2.7 L 11/08/22 11/08/22 21:10 21:10 WBC 12.93 H Plt Count 115 L MPV 11.8 H Absolute Neutrophils 9.96 H Absolute Monocytes 0.85 H BUN 6 L Calcium 8.3 L Magnesium AST 124 H ALT 156 H Alkaline Phosphatase 278 H Albumin 2.7 L
[2022-11-09] VITALS (94 sets, daily range): BP systolic 103–133; BP diastolic 56–103; PULSE 70–111; RESP 16–100; TEMP 36.4–37; O2SAT 86–100; BMI 21.6
--- NOTE | 2022-11-09 00:15 | PGE_ITS ---
Date of service: 11/09/22 Time of Service: 00:15 Informed Consent Informed Consent: Induction of Labor, Risk,Benefits,Alternatives Discussed and Other (Magnesium sulfate therapy) Pelvic Exam Dilation: 5 Effacement (%): 90 station: -1 Cervix Position: mid Contractions Monitor Mode: Internal IUPC Sa[place] units: 180 Fetus A Monitor: External (US) Heart Rate Baseline: 110 Variability: Moderate (6-25 BPM) Categories: Category I Accelerations: Present Decelerations: Early Assessment and Plan Assessment and plan (1) HELLP syndrome (HELLP), third trimester: Status: Acute Assessment and plan: 1. [employer] notified that patient would like epidural, [employer] has been notified and will present for epidural per [employer] 2. Reviewed with patient that she will need rivera catheter to keep bladder empty for remainder of labor as she is having some dizziness while out of bed now due to magnesium and epidural will diminish her ability to support herself to get on commode. 3. Will encourage continued position changes and expect vaginal delivery. Objective Abnormal lab results 11/08/22 11/08/22 11/08/22 Range/Units 13:18 13:18 21:10 WBC 11.31 H (4.4-10.8) 10^3/uL Plt Count (130-400) 10^3/uL MPV 11.6 H (8.0-11.0) fL Absolute Neutrophils (1.2-6.7) 10^3/uL Absolute Monocytes (0.1-0.8) 10^3/uL BUN (7-18) mg/dL Calcium (8.5-10.1) mg/dL Magnesium 7.0 H (1.8-2.4) mg/dL AST 95 H (15-37) U/L ALT 126 H (14-59) U/L Alkaline Phosphatase 275 H (46-116) U/L Albumin 2.7 L (3.4-5.0) g/dL 11/08/22 11/08/22 Range/Units 21:10 21:10 WBC 12.93 H (4.4-10.8) 10^3/uL Plt Count 115 L (130-400) 10^3/uL MPV 11.8 H (8.0-11.0) fL Absolute Neutrophils 9.96 H (1.2-6.7) 10^3/uL Absolute Monocytes 0.85 H (0.1-0.8) 10^3/uL BUN 6 L (7-18) mg/dL Calcium 8.3 L (8.5-10.1) mg/dL Magnesium (1.8-2.4) mg/dL AST 124 H (15-37) U/L ALT 156 H (14-59) U/L Alkaline Phosphatase 278 H (46-116) U/L Albumin 2.7 L (3.4-5.0) g/dL Temp Pulse Resp BP Pulse Ox 97.5 F L 80 16 127/76 100 11/08/22 23:45 11/09/22 00:11 11/08/22 23:15 11/09/22 00:03 11/09/22 00:11 Laboratory Results WBC 12.93 10^3/uL (4.4-10.8) H 11/08/22 21:10 RBC 4.29 10^6/uL (3.93-5.22) 11/08/22 21:10 Hgb 13.5 g/dL (11.2-15.7) 11/08/22 21:10 Hct 39.3 % (36.0-46.0) 11/08/22 21:10 MCV 92 fL (80-95) 11/08/22 21:10 MCH 31.5 pg (27.0-33.0) 11/08/22 21:10 MCHC 34.4 % (32.0-36.0) 11/08/22 21:10 RDW 12.8 % (11.7-14.6) 11/08/22 21:10 Plt Count 115 10^3/uL (130-400) L 11/08/22 21:10 MPV 11.8 fL (8.0-11.0) H 11/08/22 21:10 Immature Gran % 0.5 11/08/22 21:10 Neutrophils % 77.0 11/08/22 21:10 Lymphocytes % 15.2 11/08/22 21:10 Monocytes % 6.6 11/08/22 21:10 Eosinophils % 0.2 11/08/22 21:10 Basophils % 0.5 11/08/22 21:10 Nucleated RBC % 0.0 % (0.0-0.3) 11/08/22 21:10 Absolute Neutrophils 9.96 10^3/uL (1.2-6.7) H 11/08/22 21:10 Absolute Lymphocytes 1.97 10^3/uL (1.2-3.4) 11/08/22 21:10 Absolute Monocytes 0.85 10^3/uL (0.1-0.8) H 11/08/22 21:10 Absolute Eosinophils 0.03 10^3/uL (0.0-0.7) 11/08/22 21:10 Absolute Basophils 0.06 10^3/uL (0.0-0.2) 11/08/22 21:10 Sodium 136 mmol/L (136-145) 11/08/22 21:10 Potassium 4.3 mmol/L (3.5-5.1) 11/08/22 21:10 Chloride 102 mmol/L (98-107) 11/08/22 21:10 Carbon Dioxide 25.5 mmol/L (21.0-32.0) 11/08/22 21:10 Anion Gap 8.5 mmol/L (3-11) 11/08/22 21:10 BUN 6 mg/dL (7-18) L 11/08/22 21:10 Creatinine 0.8 mg/dL (0.55-1.02) 11/08/22 21:10 Est GFR (CKD-EPI 2020) 104.80 (mL/min/1.73m2) 11/08/22 21:10 Glucose 95 mg/dL (74-106) 11/08/22 21:10 Calcium 8.3 mg/dL (8.5-10.1) L 11/08/22 21:10 Magnesium 7.0 mg/dL (1.8-2.4) H 11/08/22 21:10 Total Bilirubin 0.5 mg/dL (0.2-1.0) 11/08/22 21:10 AST 124 U/L (15-37) H 11/08/22 21:10 ALT 156 U/L (14-59) H 11/08/22 21:10 Alkaline Phosphatase 278 U/L (46-116) H 11/08/22 21:10 Total Protein 7.1 g/dL (6.4-8.2) 11/08/22 21:10 Albumin 2.7 g/dL (3.4-5.0) L 11/08/22 21:10 Amylase 51 U/L (25-115) 11/08/22 13:18 Lipase 22 U/L (16-77) 11/08/22 13:18 Ur Random Creatinine < 13.00 mg/dL 11/08/22 13:10 U Random Total Protein < 6.0 mg/dL 11/08/22 13:10 U [place] Prot/Creat Ratio 11/08/22 13:10 Patient ABO/Rh O Positive 11/08/22 14:47 Antibody Screen NEGATIVE 11/08/22 14:47 Subjective Interval history since last seen: Minimal relief from Nitrous and is requesting epidural. Results Hemoglobin/Hematocrit: Hgb 13.5 g/dL (11.2-15.7) 11/08/22 21:10 Hct 39.3 % (36.0-46.0) 11/08/22 21:10 Abnormal Lab Findings: Abnormal Labs 11/08/22 11/08/22 11/08/22 13:18 13:18 21:10 WBC 11.31 H Plt Count MPV 11.6 H Absolute Neutrophils Absolute Monocytes BUN Calcium Magnesium 7.0 H AST 95 H ALT 126 H Alkaline Phosphatase 275 H Albumin 2.7 L 11/08/22 11/08/22 21:10 21:10 WBC 12.93 H Plt Count 115 L MPV 11.8 H Absolute Neutrophils 9.96 H Absolute Monocytes 0.85 H BUN 6 L Calcium 8.3 L Magnesium AST 124 H ALT 156 H Alkaline Phosphatase 278 H Albumin 2.7 L
--- NOTE | 2022-11-09 00:31 | ANES.PREOP_ITS ---
General Info Date of Service Date Performed: 11/09/22 Height: 5 ft 7 in Weight: 62.596 kg Body Mass Index (BMI): 21.6 Meds Allergies and Home Medications Allergies Allergy/AdvReac Type Severity Reaction Status Date / Time pollen Allergy sneezing, Uncoded 11/08/22 17:31 itchy eyes Home Medication Medication Instructions Recorded triamcinolone acetonide 0.1 % 1 applic topical DAILY PRN 08/12/22 topical cream prenat.vits,jo,[id number] 1 tab PO DAILY #90 tabs 08/20/22 cholecalciferol (vitamin D3) 50 50 mcg PO DAILY 09/30/22 mcg (2,000 unit) tablet Current Visit Medications: Current Medications Generic Name Dose Route Start Last Admin Trade Name Freq PRN Reason Stop Dose Admin Acetaminophen 650 mg 11/08/22 19:03 11/08/22 19:14 Acetaminophen 325 Mg Tab PO 650 mg Q6H PRN PRN Administration Fentanyl/Ropivacaine 200 ml 11/09/22 00:15 Fentanyl/Ropivacaine 2 Mcg/Ml And 0.1% 200 Ml [place] EP DIRECTED ZORAIDA Sodium Chloride 500 mls @ 0 mls/hr 11/08/22 14:33 Saline 500ml Bag IV PRN PRN As Directed Magnesium Sulfate 20 gm in 500 mls @ 50 mls/hr 11/08/22 14:45 11/08/22 23:11 IV 2 gm/hr INFUSION ZORAIDA 50 mls/hr Administration Protocol 2 GM/HR Ringer's Solution 1,000 mls @ 125 mls/hr 11/08/22 14:45 11/08/22 22:51 IV 125 mls/hr INFUSION ZORAIDA Administration Ringer's Solution 1,000 mls @ 125 mls/hr 11/08/22 14:45 IV INFUSION ZORAIDA Oxytocin/Sodium Chloride 30 unit in 500 mls @ 2 mls/hr 11/08/22 14:45 11/08/22 23:29 Pitocin/Normal Saline IV 24 milliunits/min INFUSION ZORAIDA 24 mls/hr Titration Protocol 2 MILLIUNITS/MIN IV Miscellaneous Supplies 1 each 11/08/22 14:45 Iv Access IV DIRECTED [facility] IV Miscellaneous Supplies 1 each 11/08/22 14:45 Iv Access IV DIRECTED [facility] Ondansetron HCl 4 mg 11/08/22 22:38 Ondansetron 4 Mg/2 Ml Vial IVP Q4H PRN PRN Sodium Chloride 0 ml 11/08/22 14:33 Normal Saline Flush 10 Ml Syr IVP PRN PRN PFSH Active Problems Active Problems: Problem Status Onset Code HELLP syndrome (HELLP), third trimester O14.23 Z34.90 COVID-19 affecting in third trimester O98.513, U07.1 Right flank pain R10.9 Dysuria R30.0 Pyelectasis of fetus on ultrasound O35.EXX0 RSV infection B33.8 Perioral dermatitis L71.0 Rubella non-immune status, antepartum O09.899, Z28.39 Z34.90 Anxiety and depression F41.9, F32.A Tobacco abuse 01/26/18 Z72.0 Acne 01/26/18 L70.9 Medical History Medical History Allergic rhinitis Pollen and Dust Chronic headache Contraception (03/25/15) Family history of chromosomal abnormality 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 Positive test Scoliosis Surgical History Surgical History [place] Teeth Extraction Tobacco Smoking/Tobacco Use Status: Former Tobacco Use Substance Use Substance use: Never Prental History History 1 Para 0 Hx # Term Pregnancies 0 Multiple births 0 Hx # Pregnancies 0 Ectopic pregnancies 0 AB induced 0 Hx Number of Living Children 0 AB spontaneous 0 Vital Signs and Lab Results Vital Signs Most Recent Vital Signs in EMR: Most Recent Vital Signs Temp Pulse Resp BP Pulse Ox 36.4 C L 83 16 127/76 100 11/09/22 00:15 11/09/22 00:31 11/09/22 00:15 11/09/22 00:15 11/09/22 00:31 Lab Results 11/08/22 21:10 11/08/22 21:10 Blood Type / Crossmatch: Patient ABO/Rh O Positive 11/08/22 Antibody Screen NEGATIVE 11/08/22 Complete Blood Count: White Blood Count 12.93 10^3/uL (4.4-10.8) H 11/08/22 21:10 Red Blood Count 4.29 10^6/uL (3.93-5.22) 11/08/22 21:10 Hemoglobin 13.5 g/dL (11.2-15.7) 11/08/22 21:10 Hematocrit 39.3 % (36.0-46.0) 11/08/22 21:10 Platelet Count 115 10^3/uL (130-400) L 11/08/22 21:10 Complete Metabolic Panel: Sodium 136 mmol/L (136-145) 11/08/22 21:10 Potassium 4.3 mmol/L (3.5-5.1) 11/08/22 21:10 Chloride 102 mmol/L (98-107) 11/08/22 21:10 Carbon Dioxide 25.5 mmol/L (21.0-32.0) 11/08/22 21:10 BUN 6 mg/dL (7-18) L 11/08/22 21:10 Creatinine 0.8 mg/dL (0.55-1.02) 11/08/22 21:10 Est GFR (CKD-EPI 2020) 104.80 (mL/min/1.73m2) 11/08/22 21:10 Magnesium 7.0 mg/dL (1.8-2.4) H 11/08/22 21:10 Calcium 8.3 mg/dL (8.5-10.1) L 11/08/22 21:10 Albumin 2.7 g/dL (3.4-5.0) L 11/08/22 21:10 Glucose 95 mg/dL (74-106) 11/08/22 21:10 Liver Function Panel: Alanine Aminotransferase (ALT/SGPT) 156 U/L (14-59) H 11/08/22 21:10 Aspartate Amino Transf (AST/SGOT) 124 U/L (15-37) H 11/08/22 21 :10 Coagulation Panel: INR International Normalized Ratio Pending 11/09/22 03:1 5 Prothrombin Time Pending 11/09/22 03:15 Activated Partial Thromboplast Time Pending 11/09/22 03: 15 Fibrinogen Pending 11/09/22 03:15 Cardiac Panel: No Data to Display Arterial Blood Gas: No Data to Display Venous Blood Gas: No Data to Display Pancreas Panel: Amylase Level 51 U/L (25-115) 11/08/22 13:18 Lipase 22 U/L (16-77) 11/08/22 13:18 Thyroid Panel: No Data to Display Infectious Disease: No Data to Display Blood Cultures: No Data to Display Toxicology Panel: Urine Amphetamines Screen Negative (Negative) 10/29/22 15:40 Urine Benzodiazepines Screen Negative (Negative) 10/29/22 15:4 0 Urine Barbiturates Screen Negative (Negative) 10/29/22 15:40 Urine Cocaine Screen Negative (Negative) 10/29/22 15:40 Urine Methadone Screen Negative (Negative) 10/29/22 15:40 Urine Opiates Screen Negative (Negative) 10/29/22 15:40 Ur Tricyclic Antidepressants Screen Negative (Negative) 15:40 Ur Tetrahydrocannabinol (THC) Scrn Negative (Negative) 3 15:40 Panel: No Data to Display Anesthesia Assessment and Plan Anesthesia History Personal History: No History of Anesthesia Complications Family History: No Family History of Anesthesia Complications Exercise Tolerance Exercise Tolerance: Metabolic Equivalents>4 Cardiac & Pulmonary Exam Cardiac Exam: Normal S1/S2 Heart Sounds Pulmonary Exam: Clear Bilateral Breath Sounds Implantable Cardiac Device Does patient have a Pacemaker or an ICD?: No Airway Exam Known Difficult Airway: No Mallampati Class: 2 Mouth Opening: Normal (> 3cm) Thyromental Distance: Greater than 3 cm Neck Range of Motion: Full ROM Neck Circumference: Normal Teeth Condition: Normal Dentition ASA Classification ASA Score: ASA 2 Emergency Case?: No NPO Status NPO Status: NPO Clears >2 hours, Solids >8 hours Status Status: Confirmed Anesthesia Plan Resuscitation Status: Full Code Anesthesia Technique: Epidural Anesthesia Airway Planned: Natural Airway Monitors Used: Standard Monitors Preoperative Comments:: 27 yo g1 female here for IOL due to HELLP requesting labor analgesia. she is 5 cm, 90%, and -1, receiving mag and pitocin. Sig PMHx: anxiety/depression, scoliosis, former smoker. Plt: - 140 @ 1300, 11/08 - 115 @ 2110,
[2022-11-09] MEDS: FentaNYL/ROPIvacaine 2 mcg/ml and 0.1% 200 ML CADD Cassette EP (01:21)
[2022-11-09] MEDS: Lidocaine 1.5 % Pres-Free W/EPI 1/200,000 30 ML VIAL (01:21)
--- NOTE | 2022-11-09 01:27 | W.ANESNEU ---
Epidural/Spinal Catheter Date Performed: 11/09/22 Procedure Start: 00:50 Procedure Stop: 01:18 Requesting Provider: Nancy Diaz Procedure Location: Obstetrics Reason Performed: Labor Epidural Standard Monitors Applied: Blood Pressure and SpO2 Patient Position: Sitting Sedation Given (Indicate Dose Given): No Sedation given Patient Mental Status: Awake Sterility: Hand Hygiene, Surgical Cap, Surgical Mask, Sterile Gloves, Sterile Drape/Sheet and Chlorhexidine Procedure Location: L3-L4 Interspace Epidural Needle: Tuohy 17 Guage Needle Length: 3.5 Inch Needle Approach: Midline Epidural Procedure: TERRI to Saline Used Catheter Placed?: Catheter Placed (wire reinforced) Test Dose (Indicate Dose Given): 3ml 1.5% Lidocaine with 1:200K Epinephrine Given Loss of Resistance Depth (cm): 4 Catheter depth at skin (cm): 9 Dressing: Sorbaview Dressing Placed, Mastisol Used and Dressing reinforced with Tape Epidural Provider Bolus (Indicate Dose Given): Total Ropivacaine 0.1% with Fentanyl 2mcg/ml Given from pump. (ml) Dose:: 10 mL Additives (Indicate Dose Given ): None Infusion Medication: Medication Infusion Began Medication Infusion: Ropivacaine 0.1% with Fentanyl 2mcg/ml Maintenance Infusion Rate (ml/hour): 10 PCEA Bolus Dose (ml): 5 Block Level: N/A Paresthesia: None Ultrasound: Used to ulises site Number of Attempts (See previous attempts in note section): 1 Procedure Tolerated: No Complications Procedure Outcome: Successful Procedure Comment:: Good relief after loading dose, but more right sided, repositioned with good effect. PCEA function discussed. Resting/sleeping shortly after. Performed By: Oscar Leon
--- NOTE | 2022-11-09 01:34 | PGE_ITS ---
Date of service: 11/09/22 Time of Service: 01:34 Informed Consent Informed Consent: Induction of Labor, Risk,Benefits,Alternatives Discussed and Other (Magnesium sulfate therapy) Pelvic Exam Dilation: 9 Effacement (%): 100 station: +1 Consistency: soft Contractions Monitor Mode: Internal Contraction Frequency(min): 3-4 Contraction Duration(sec): 60-80 Intensity: Strong Fetus A Monitor: External (US) Heart Rate Baseline: 110 Variability: Moderate (6-25 BPM) Categories: Category I Accelerations: 15 X 15 Decelerations: Early Assessment and Plan Assessment and plan (1) HELLP syndrome (HELLP), third trimester: Status: Acute Assessment and plan: 1. Leslie has excellent relief of pain with her epidural. tolerated procedure well 2. Recee is in place 3. VE 9/100/+1 4. Will encourage patient to labor down and will reassess in 1-2 hours or prn. 5. Expect NVD. KH Objective Abnormal lab results 11/08/22 11/08/22 11/08/22 Range/Units 13:18 13:18 21:10 WBC 11.31 H (4.4-10.8) 10^3/uL Plt Count (130-400) 10^3/uL MPV 11.6 H (8.0-11.0) fL Absolute Neutrophils (1.2-6.7) 10^3/uL Absolute Monocytes (0.1-0.8) 10^3/uL BUN (7-18) mg/dL Calcium (8.5-10.1) mg/dL Magnesium 7.0 H (1.8-2.4) mg/dL AST 95 H (15-37) U/L ALT 126 H (14-59) U/L Alkaline Phosphatase 275 H (46-116) U/L Albumin 2.7 L (3.4-5.0) g/dL 11/08/22 11/08/22 Range/Units 21:10 21:10 WBC 12.93 H (4.4-10.8) 10^3/uL Plt Count 115 L (130-400) 10^3/uL MPV 11.8 H (8.0-11.0) fL Absolute Neutrophils 9.96 H (1.2-6.7) 10^3/uL Absolute Monocytes 0.85 H (0.1-0.8) 10^3/uL BUN 6 L (7-18) mg/dL Calcium 8.3 L (8.5-10.1) mg/dL Magnesium (1.8-2.4) mg/dL AST 124 H (15-37) U/L ALT 156 H (14-59) U/L Alkaline Phosphatase 278 H (46-116) U/L Albumin 2.7 L (3.4-5.0) g/dL Temp Pulse Resp BP Pulse Ox 97.5 F L 96 H 16 111/87 100 11/09/22 00:15 11/09/22 01:33 11/09/22 00:15 11/09/22 01:32 11/09/22 01:33 Laboratory Results WBC 12.93 10^3/uL (4.4-10.8) H 11/08/22 21:10 RBC 4.29 10^6/uL (3.93-5.22) 11/08/22 21:10 Hgb 13.5 g/dL (11.2-15.7) 11/08/22 21:10 Hct 39.3 % (36.0-46.0) 11/08/22 21:10 MCV 92 fL (80-95) 11/08/22 21:10 MCH 31.5 pg (27.0-33.0) 11/08/22 21:10 MCHC 34.4 % (32.0-36.0) 11/08/22 21:10 RDW 12.8 % (11.7-14.6) 11/08/22 21:10 Plt Count 115 10^3/uL (130-400) L 11/08/22 21:10 MPV 11.8 fL (8.0-11.0) H 11/08/22 21:10 Immature Gran % 0.5 11/08/22 21:10 Neutrophils % 77.0 11/08/22 21:10 Lymphocytes % 15.2 11/08/22 21:10 Monocytes % 6.6 11/08/22 21:10 Eosinophils % 0.2 11/08/22 21:10 Basophils % 0.5 11/08/22 21:10 Nucleated RBC % 0.0 % (0.0-0.3) 11/08/22 21:10 Absolute Neutrophils 9.96 10^3/uL (1.2-6.7) H 11/08/22 21:10 Absolute Lymphocytes 1.97 10^3/uL (1.2-3.4) 11/08/22 21:10 Absolute Monocytes 0.85 10^3/uL (0.1-0.8) H 11/08/22 21:10 Absolute Eosinophils 0.03 10^3/uL (0.0-0.7) 11/08/22 21:10 Absolute Basophils 0.06 10^3/uL (0.0-0.2) 11/08/22 21:10 Sodium 136 mmol/L (136-145) 11/08/22 21:10 Potassium 4.3 mmol/L (3.5-5.1) 11/08/22 21:10 Chloride 102 mmol/L (98-107) 11/08/22 21:10 Carbon Dioxide 25.5 mmol/L (21.0-32.0) 11/08/22 21:10 Anion Gap 8.5 mmol/L (3-11) 11/08/22 21:10 BUN 6 mg/dL (7-18) L 11/08/22 21:10 Creatinine 0.8 mg/dL (0.55-1.02) 11/08/22 21:10 Est GFR (CKD-EPI 2020) 104.80 (mL/min/1.73m2) 11/08/22 21:10 Glucose 95 mg/dL (74-106) 11/08/22 21:10 Calcium 8.3 mg/dL (8.5-10.1) L 11/08/22 21:10 Magnesium 7.0 mg/dL (1.8-2.4) H 11/08/22 21:10 Total Bilirubin 0.5 mg/dL (0.2-1.0) 11/08/22 21:10 AST 124 U/L (15-37) H 11/08/22 21:10 ALT 156 U/L (14-59) H 11/08/22 21:10 Alkaline Phosphatase 278 U/L (46-116) H 11/08/22 21:10 Total Protein 7.1 g/dL (6.4-8.2) 11/08/22 21:10 Albumin 2.7 g/dL (3.4-5.0) L 11/08/22 21:10 Amylase 51 U/L (25-115) 11/08/22 13:18 Lipase 22 U/L (16-77) 11/08/22 13:18 Ur Random Creatinine < 13.00 mg/dL 11/08/22 13:10 U Random Total Protein < 6.0 mg/dL 11/08/22 13:10 U [place] Prot/Creat Ratio 11/08/22 13:10 Patient ABO/Rh O Positive 11/08/22 14:47 Antibody Screen NEGATIVE 11/08/22 14:47 Subjective Interval history since last seen: Very comfortable since epidural was placed. Patient and baby tolerated procedure well. Reece catheter was placed and VE was done due to increase in bloody show. VE 9/100/+1. will encourage patient to rest and allow her body to labor down at this time. KH Results Hemoglobin/Hematocrit: Hgb 13.5 g/dL (11.2-15.7) 11/08/22 21:10 Hct 39.3 % (36.0-46.0) 11/08/22 21:10 Abnormal Lab Findings: Abnormal Labs 11/08/22 11/08/22 11/08/22 13:18 13:18 21:10 WBC 11.31 H Plt Count MPV 11.6 H Absolute Neutrophils Absolute Monocytes BUN Calcium Magnesium 7.0 H AST 95 H ALT 126 H Alkaline Phosphatase 275 H Albumin 2.7 L 11/08/22 11/08/22 21:10 21:10 WBC 12.93 H Plt Count 115 L MPV 11.8 H Absolute Neutrophils 9.96 H Absolute Monocytes 0.85 H BUN 6 L Calcium 8.3 L Magnesium AST 124 H ALT 156 H Alkaline Phosphatase 278 H Albumin 2.7 L
--- NOTE | 2022-11-09 03:02 | PLAC_PTH ---
PATIENT: Leslie Lucero LOC: OBS U#:[id number] AGE/SX: 27/F ROOM: OBS.301 RE11/08/[address]: Nancy Diaz CNM : 1995 BED: A DIS: 11/11/2022 SPEC #: [id number] RECD: 11/09/22 12:16 STATUS: ANH REAlexys #: [id number] ASHLEY: 11/09/22 03:[address]: Nancy Diaz DEPT: Surgical Specimen RECD BY: Kyra Cárdenas ENTERED: 11/09/22 12:17 SP TYPE: PLAC OTHR DR: Sapphire Vizcaino APRN Tissues: 1 - PLACENTA (3RD TRIMESTER) Procedures: GROSS AND MICRO LEVEL 5 Comments: [id number]
--- NOTE | 2022-11-09 03:10 | OBVDS_ITS ---
Date of service: 11/09/22 Time of Service: 03:10 OB Labor/ Delivery Information Baby A Delivery Delivery Method: Spontaneaous Presentation: Cephalic Cephalic Position: Vertex Vertex Position: Left Occipital Anterior Cord Description-Baby A: 3 Vessels and Clamped/Cut Estimated Blood Loss: 150ml Delivery Outcome: Liveborn Complications: none Infant Transferred: Remains with Mother Providers Nurse Rough Patcher: Nancy Diaz Nurse: Ana Williamson Nurse: Lisa Velasco Labor/Delivery Information Number of Babies in Womb: 1 Steroids Given: None Reason Steroids Not Administered: N/A Group Beta Strep: Negative Rubella Status: Nonimmune Blood Type: O+ Varicella Immunity: Immune Medication in Delivery: Pitocin, Magnesium Maternal Complications: None Shoulder Dystocia: No Note: Leslie presented for complaint of upper back pain. Lab evaluation showed HELLP syndrome and she was admitted for induction of labor per consultation with Dr. Lewis. Magnesium sulfate seizure prophylaxis was started on 11/08 at approximately 1515 and pitocin for induction began after. She tolerated labor well but did not like the way nitrous oxide made her feel and she requested eipdural for pain management. FHR tracing was CAT I throughout and contractions were strong with MVU of 180. VE at 0003 was 5/100/-1. She progressed after epidural to 9cm and was able to labor down until 0202 when she was noted to be 10cm +2 station. Second stage huddle was held and we reviewed possible me dications and management of potential PPH. Leslie pushed with excellent effort and delivered a live male over intact perineum at 0252. Baby was placed skin to skin immediately and had spontaneous cry. 7 and 9. After 5 minutes cord pulsation ceased and cord was double clamped and cut by Father, Jordan. Positive family bonding is noted. IV pit[facility] of second stage. Placenta delivered, spontaneously and intact at 0302. Fundus firmed with massage and IV pitocin to U-3. EBL 150 ml. Perineum and vagina inspected and is intact. There are bilateral labial abrasions that are hemostatic and left un-repaired. Leslie plans to breast feed her son. Contraception is not decided. weight 6lb 5.41 oz. Will continue magnesium sulfate for 24 hours PP. Lab evaluation of CBC, CMP and Mag level as well as PT, PTT and fibrinogen done at approximately 0315. Sponge, needle and instrument count are correct. Mother and baby are in satisfactory condition. KH Stages of Labor Onset of Labor Date: 11/09/22 Onset of Labor Time: 00:00 Complete Dilatation Date: 11/09/22 Complete Dilatation Time: 02:02 Labor - Stage 1 Duration: 2 hours and 2 minutes ROM Baby A: 11/08/22 ROM Baby A: 22:05 ROM Total Time- Baby A: [id number] Infant Delivery Date-Baby A: 11/09/22 Delivery Time-Baby A: 02:52 Labor Stage 2 Duration: 50 minutes Placenta Delivery Date-Baby A: 11/09/22 Placenta Delivery Time-Baby A: 03:02 Labor-Stage 3 Duration: 10 minutes Total Length of Labor-Baby A: 2 hours and 52 minutes Placenta Cultured: Yes Placenta Status: Delivered Baby A Infant Gender: Male Gestational Status: Early Term (37-38.6 wks) Gestational Age in Weeks/Days: 42 Weeks and 1 Days Score-1 Minute Interval(Baby A) Heart Rate-1 minute: 100 BPM or Greater Respiratory Effort- 1 minute: Spontaneous/Strong Cry Muscle Tone-1 minute: Minimal Flexion/Extension Reflex Response-1 minute: Prompt Response Color-1 minute: Pallor or Cyanosis Total Score-1 minute: 7 Score-5 Minute Interval(Baby A) Heart Rate- 5 minute: 100 BPM or Greater Respiratory Effort-5 minute: Spontaneous/Strong Cry Muscle Tone-5 minute: Active Movement Reflex Response-5 minute: Prompt Response Color-5 minute: Bluish Hands or Feet Total Score- 5 minute: 9
[2022-11-09 03:49] LABS: HCT 38.5 % (36.0-46.0); HGB 13.3 g/dL (11.2-15.7); MCH 31.6 pg (27.0-33.0); MCHC 34.5 % (32.0-36.0); MCV 91 fL (80-95); MPV 11.6 fL (8.0-11.0); Platelet Count 114 10^3/uL (130-400); RBC 4.21 10^6/uL (3.93-5.22); RDW 12.9 % (11.7-14.6); RDW-SD 43.3 fL; WBC 13.31 10^3/uL (4.4-10.8)
[2022-11-09 04:02] LABS: PTT Activated 29.4 sec (21.5-31.9)
[2022-11-09 04:04] LABS: Prothrombin Time < 8.9 sec (9.3-11.0)
[2022-11-09 04:10] LABS: ALT 160 U/L (14-59); AST 130 U/L (15-37); Albumin 2.8 g/dL (3.4-5.0); Alkaline Phosphatase 286 U/L (46-116); Anion Gap 13.5 mmol/L (3-11); BUN 7 mg/dL (7-18); Bilirubin, Total 0.4 mg/dL (0.2-1.0); CO2 23.5 mmol/L (21.0-32.0); Calcium 7.6 mg/dL (8.5-10.1); Chloride 98 mmol/L (98-107); Estimated GFR 80.18 (mL/min/1.73m2); Glucose 114 mg/dL (74-106); Potassium 4.3 mmol/L (3.5-5.1); Sodium 135 mmol/L (136-145); Total Protein 7.5 g/dL (6.4-8.2)
[2022-11-09 04:13] LABS: Magnesium 7.3 mg/dL (1.8-2.4)
[2022-11-09] MEDS: Lactated Ringers 1,000 ML 125 ML IV ×2 (06:40→14:25)
--- NOTE | 2022-11-09 08:49 | W.PM.OBPNV1 ---
Date of service: 11/09/22 Time of Service: 08:49 Assessment and Plan Assessment and plan (1) care following vaginal delivery: Status: Acute Assessment and plan: 1. continue present management with additional safety measures related to Magnesium sulfate IV therapy for HELLP 2. Breast feeding is well established 3. Will reassess as needed 4. Physician has met patient today and will be managing labs for remainder of stay. (2) HELLP syndrome (HELLP), third trimester: Status: Acute Assessment and plan: 1. continue magnesium sulfate for 24 hours minimum 2. Labs at 0915 for repeat PT and CBC, CMP, Mag level and Dr. Lewis will manage any recommendations for further testing. Subjective Subjective Interval history: Has no concerns this morning. Has been out of bed and been able to empty bladder without difficulty. Minimal bleeding. Baby has been cluster feeding and is now asleep. I recommended she sleep as well as she has not slept since delivery. Patient's Mood: happy [place] baby status: Doing well, Nursing well and Rooming in Exam Physical Exam Vital signs: Temp Pulse Resp BP Pulse Ox 98.2 F 93 H 16 124/85 99 11/09/22 08:15 11/09/22 08:15 11/09/22 08:15 11/09/22 08:15 11/09/22 08:15 Vital Signs Reviewed: Yes Constitutional Constitutional: no acute distress, average body habitus and cooperative HEENT Exam HEENT Exam: Normal Neck Exam Neck Exam: Normal (normal visual inspection) Respiratory Exam Respiratory Exam: Normal Cardiovascular Exam Cardiovascular Exam: Normal Abdominal Exam Abdomen: Other (normal exam) Fundal Exam Fundus: Below Umbilicus and Firm Comment: small lochia noted. Rectal Exam Rectal Exam: Not Done Exam Perineum: Intact and Normal Extremities Exam Extremity Exam: Normal (denies calf tenderness) and Full ROM Back/Spine/Pelvis Exam Back Exam: Normal Skin Exam Skin Exam: Normal Neurological Exam Neurological Exam: Normal Psychiatric Exam Psychiatric Exam: Normal Results Hemoglobin/Hematocrit: Hgb 13.3 g/dL (11.2-15.7) 11/09/22 03:15 Hct 38.5 % (36.0-46.0) 11/09/22 03:15 Abnormal Lab Findings: Abnormal Labs 11/08/22 11/08/22 11/08/22 13:18 13:18 21:10 WBC 11.31 H Plt Count MPV 11.6 H Absolute Neutrophils Absolute Monocytes PT Sodium Anion Gap BUN Glucose Calcium Magnesium 7.0 H AST 95 H ALT 126 H Alkaline Phosphatase 275 H Albumin 2.7 L 11/08/22 11/08/22 11/09/22 21:10 21:10 03:15 WBC 12.93 H Plt Count 115 L MPV 11.8 H Absolute Neutrophils 9.96 H Absolute Monocytes 0.85 H PT Sodium 135 L Anion Gap 13.5 H BUN 6 L Glucose 114 H Calcium 8.3 L 7.6 L Magnesium 7.3 H* AST 124 H 130 H ALT 156 H 160 H Alkaline Phosphatase 278 H 286 H Albumin 2.7 L 2.8 L 11/09/22 11/09/22 03:15 03:15 WBC 13.31 H Plt Count 114 L MPV 11.6 H Absolute Neutrophils Absolute Monocytes PT < 8.9 L Sodium Anion Gap BUN Glucose Calcium Magnesium AST ALT Alkaline Phosphatase Albumin
[2022-11-09 10:07] LABS: HCT 37.2 % (36.0-46.0); MCH 31.8 pg (27.0-33.0); MCHC 34.9 % (32.0-36.0); MCV 91 fL (80-95); Platelet Count 104 10^3/uL (130-400); RBC 4.09 10^6/uL (3.93-5.22); RDW 12.9 % (11.7-14.6); WBC 14.06 10^3/uL (4.4-10.8)
[2022-11-09] MEDS: Acetaminophen 325 MG TAB 650 MG PO ×2 (10:33→14:20)
[2022-11-09] MEDS: MAGNESIUM SULFATE 20 GM/500 ML BAG IV (10:34)
[2022-11-09 10:39] LABS: ALT 153 U/L (14-59); AST 115 U/L (15-37); Albumin 2.6 g/dL (3.4-5.0); Alkaline Phosphatase 264 U/L (46-116); Anion Gap 10.8 mmol/L (3-11); BUN 5 mg/dL (7-18); Bilirubin, Total 0.3 mg/dL (0.2-1.0); CO2 25.2 mmol/L (21.0-32.0); CREATININE 0.7 mg/dL (0.55-1.02); Calcium 7.5 mg/dL (8.5-10.1); Chloride 101 mmol/L (98-107); Estimated GFR 123.01 (mL/min/1.73m2); Glucose 116 mg/dL (74-106); Potassium 3.5 mmol/L (3.5-5.1); Sodium 137 mmol/L (136-145); Total Protein 7.1 g/dL (6.4-8.2)
[2022-11-09 10:47] LABS: Magnesium 6.8 mg/dL (1.8-2.4)
[2022-11-09 10:50] LABS: Prothrombin Time < 8.9 sec (9.3-11.0)
[2022-11-09 10:52] LABS: PTT Activated 31.4 sec (21.5-31.9)
[2022-11-09 13:48] LABS: Fibrinogen (Stat) (Littleton) 526 mg/dL (208-434)
[2022-11-09 15:39] LABS: Abs Immature Grans 0.09 10^3/uL (0.0-0.06); Absolute Basophil Count 0.05 10^3/uL (0.0-0.2); Absolute Eosinophil Count 0.11 10^3/uL (0.0-0.7); Absolute Lymphocyte Count 2.45 10^3/uL (1.2-3.4); Absolute Monocyte Count 0.82 10^3/uL (0.1-0.8); Absolute Neutrophil Count 9.74 10^3/uL (1.2-6.7); Basophils % 0.4; Eosinophils % 0.8; HCT 37.5 % (36.0-46.0); Immature Grans % 0.7; Lymphocytes % 18.5; MCH 31.3 pg (27.0-33.0); MCHC 34.7 % (32.0-36.0); MCV 90 fL (80-95); MPV 11.5 fL (8.0-11.0); Monocytes % 6.2; Neutrophils % 73.4; Platelet Count 106 10^3/uL (130-400); RBC 4.16 10^6/uL (3.93-5.22); RDW 12.8 % (11.7-14.6); RDW-SD 42.3 fL; WBC 13.27 10^3/uL (4.4-10.8)
[2022-11-09 16:03] LABS: ALT 147 U/L (14-59); AST 100 U/L (15-37); Albumin 2.3 g/dL (3.4-5.0); Alkaline Phosphatase 232 U/L (46-116); Anion Gap 8.9 mmol/L (3-11); BUN 6 mg/dL (7-18); Bilirubin, Total 0.3 mg/dL (0.2-1.0); CO2 26.1 mmol/L (21.0-32.0); CREATININE 0.8 mg/dL (0.55-1.02); Calcium 7.7 mg/dL (8.5-10.1); Chloride 103 mmol/L (98-107); Glucose 120 mg/dL (74-106); Sodium 138 mmol/L (136-145); Total Protein 6.5 g/dL (6.4-8.2)
[2022-11-09 16:21] LABS: Magnesium 5.7 mg/dL (1.8-2.4)
[2022-11-09] MEDS: Ibuprofen 600 MG TAB PO (17:32)
[2022-11-10] VITALS (7 sets, daily range): BP systolic 106–119; BP diastolic 69–82; PULSE 67–93; RESP 16–20; TEMP 36.5–36.7; O2SAT 97–100
[2022-11-10] MEDS: Acetaminophen 325 MG TAB 650 MG PO ×2 (06:18→12:14)
[2022-11-10 06:47] LABS: HCT 35.6 % (36.0-46.0); HGB 12.1 g/dL (11.2-15.7); MCV 91 fL (80-95); MPV 11.8 fL (8.0-11.0); RDW 13.2 % (11.7-14.6); RDW-SD 42.9 fL; WBC 12.19 10^3/uL (4.4-10.8)
[2022-11-10 06:55] LABS: Platelet Count 113 10^3/uL (130-400)
[2022-11-10 07:18] LABS: ALT 116 U/L (14-59); AST 60 U/L (15-37); Albumin 2.2 g/dL (3.4-5.0); Alkaline Phosphatase 197 U/L (46-116); Anion Gap 6.9 mmol/L (3-11); BUN 7 mg/dL (7-18); Bilirubin, Total 0.2 mg/dL (0.2-1.0); CO2 28.1 mmol/L (21.0-32.0); CREATININE 0.7 mg/dL (0.55-1.02); Calcium 7.8 mg/dL (8.5-10.1); Chloride 106 mmol/L (98-107); Estimated GFR 123.01 (mL/min/1.73m2); Glucose 77 mg/dL (74-106); Sodium 141 mmol/L (136-145); Total Protein 6.2 g/dL (6.4-8.2)
--- NOTE | 2022-11-10 15:55 | W.PM.OBPNV1 ---
Date of service: 11/10/22 Time of Service: 15:55 Assessment and Plan Assessment and plan (1) HELLP syndrome (HELLP), third trimester: Status: Acute Assessment and plan: Leslie had hoped to go home but she was encouraged to stay for frther observation due to HELLP syndrome. (2) care following vaginal delivery: Status: Acute Assessment and plan: Caring for baby independently. Pain is managed well with oral analgesics. Voiding without difficulty. well. preeclampsia labs taken this morning and they are improving. A - stable mother and baby , Post day 1, HELLP syndrome P - Discharge to home tomorrow. Repeat preeclampsia labs in the morning. Routine post instructions. [facility]. Plan reviewed with Dr Lewis who agrees Subjective Subjective Patient's Mood: good baby status: Doing well [place] feeding status: Exclusively breast feeding (pumping and using a nipple shield) Narrative: Leslie feels well. mag sulfate was discontinued this morning and Leslie feels well. Out of bed and caring for her baby independently. Receiving assitance with from her nurse and keshav AUGUST. Exam Physical Exam Vital signs: Temp Pulse Resp BP Pulse Ox 98.1 F 82 20 106/69 100 11/10/22 15:40 11/10/22 15:40 11/10/22 15:40 11/10/22 15:40 11/10/22 15:40 Respiratory Exam Respiratory Exam: Normal Cardiovascular Exam Cardiovascular Exam: Normal Fundal Exam Fundus: Below Umbilicus and Firm Extremities Exam Extremity Exam: Normal Psychiatric Exam Psychiatric Exam: Normal Results Hemoglobin/Hematocrit: Hgb 12.1 g/dL (11.2-15.7) 11/10/22 06:10 Hct 35.6 % (36.0-46.0) L 11/10/22 06:10 Abnormal Lab Findings: Abnormal Labs 11/08/22 11/08/22 11/08/22 13:18 13:18 21:10 WBC 11.31 H RBC Hct Plt Count MPV 11.6 H Absolute Neutrophils Absolute Monocytes PT Fibrinogen Sodium Anion Gap BUN Glucose Calcium Magnesium 7.0 H AST 95 H ALT 126 H Alkaline Phosphatase 275 H Total Protein Albumin 2.7 L 11/08/22 11/08/22 11/09/22 21:10 21:10 03:15 WBC 12.93 H RBC Hct Plt Count 115 L MPV 11.8 H Absolute Neutrophils 9.96 H Absolute Monocytes 0.85 H PT Fibrinogen Sodium 135 L Anion Gap 13.5 H BUN 6 L Glucose 114 H Calcium 8.3 L 7.6 L Magnesium 7.3 H* AST 124 H 130 H ALT 156 H 160 H Alkaline Phosphatase 278 H 286 H Total Protein Albumin 2.7 L 2.8 L 11/09/22 11/09/22 11/09/22 03:15 03:15 09:20 WBC 13.31 H RBC Hct Plt Count 114 L MPV 11.6 H Absolute Neutrophils Absolute Monocytes PT < 8.9 L Fibrinogen Sodium Anion Gap BUN Glucose Calcium Magnesium 6.8 H* AST ALT Alkaline Phosphatase Total Protein Albumin 11/09/22 11/09/22 11/09/22 09:20 09:20 09:20 WBC 14.06 H RBC Hct Plt Count 104 L MPV 12.0 H Absolute Neutrophils Absolute Monocytes PT < 8.9 L Fibrinogen Sodium Anion Gap BUN 5 L Glucose 116 H Calcium 7.5 L Magnesium AST 115 H ALT 153 H Alkaline Phosphatase 264 H Total Protein Albumin 2.6 L 11/09/22 11/09/22 11/09/22 11:40 15:30 15:30 WBC RBC Hct Plt Count MPV Absolute Neutrophils Absolute Monocytes PT Fibrinogen 526 H Sodium Anion Gap BUN 6 L Glucose 120 H Calcium 7.7 L Magnesium 5.7 H* D AST 100 H ALT 147 H Alkaline Phosphatase 232 H Total Protein Albumin 2.3 L 11/09/22 11/10/22 11/10/22 15:30 06:10 06:10 WBC 13.27 H 12.19 H RBC 3.90 L Hct 35.6 L Plt Count 106 L 113 L MPV 11.5 H 11.8 H Absolute Neutrophils 9.74 H Absolute Monocytes 0.82 H PT Fibrinogen Sodium Anion Gap BUN Glucose Calcium 7.8 L Magnesium AST 60 H ALT 116 H Alkaline Phosphatase 197 H Total Protein 6.2 L Albumin 2.2 L
[2022-11-11 03:10] VITALS: BP 100/57; PULSE 67; RESP 18; TEMP 36.6
[2022-11-11 06:51] LABS: HCT 38.6 % (36.0-46.0); HGB 12.9 g/dL (11.2-15.7); MCH 31.2 pg (27.0-33.0); MCHC 33.4 % (32.0-36.0); MCV 94 fL (80-95); MPV 11.4 fL (8.0-11.0); Platelet Count 145 10^3/uL (130-400); RBC 4.13 10^6/uL (3.93-5.22); RDW 13.2 % (11.7-14.6); RDW-SD 45.1 fL; WBC 13.61 10^3/uL (4.4-10.8)
[2022-11-11 07:09] LABS: ALT 89 U/L (14-59); AST 40 U/L (15-37); Albumin 2.4 g/dL (3.4-5.0); Alkaline Phosphatase 187 U/L (46-116); Anion Gap 6.1 mmol/L (3-11); BUN 7 mg/dL (7-18); Bilirubin, Total 0.2 mg/dL (0.2-1.0); CO2 30.9 mmol/L (21.0-32.0); CREATININE 0.7 mg/dL (0.55-1.02); Calcium 9.2 mg/dL (8.5-10.1); Chloride 103 mmol/L (98-107); Estimated GFR 123.01 (mL/min/1.73m2); Glucose 79 mg/dL (74-106); Potassium 4.2 mmol/L (3.5-5.1); Sodium 140 mmol/L (136-145); Total Protein 6.7 g/dL (6.4-8.2); Uric Acid 5.7 mg/dL (2.6-6.0)
[2022-11-11 08:24] VITALS: BP 115/75; PULSE 73; RESP 16; TEMP 37; O2SAT 99
--- NOTE | 2022-11-11 10:15 | W.PM.OBDISCH ---
Date of service: 11/11/22 Time of Service: 10:16 DS: Diagnosis Discharge Diagnosis (1) HELLP syndrome (HELLP), third trimester: Status: Acute Asessment and Plan: Labwork is improving this morning. Discharge to home. Signs of preeclampsia reviewed. (2) care following vaginal delivery: Status: Acute Asessment and Plan: Caring for baby independently. Pain is managed well with oral analgesics. Voiding without difficulty. well. A - stable mother and baby , Post day 2 P - Discharge to home. Routine post instructions. Consult with Dr Gomez, [facility] mon [facility]/15 for BP check. Discharge Plan Disposition Patient Disposition: Home Condition: Good Discharge Details Reason For Visit: HELLP syndrome in third trimester Admit Date/Time: 11/08/22 14:33 Admit Provider: Nancy Diaz Attending Provider: Nancy Diaz Primary Care Provider: Sapphire Vizcaino Home Meds and New Rx's Prescriptions: Continued triamcinolone acetonide 0.1 % cream 1 applic topical DAILY PRN Patient Comments: 08/11/22- for eczema cholecalciferol (vitamin D3) 50 mcg (2,000 unit) tablet 50 mcg PO DAILY prenat.vits,jo,[id number] Tablet 1 tab PO DAILY Qty: 90 4RF Discharge Instructions Stand Alone Forms: BC Instructions, BC Post Vaginal Deliver Activity:: Activity as Tolerated Equipment/Supplies:: No Equipment Needed Diet:: Normal Diet Discharge Orders Discharge Orders: Discharge Order (Routine); Ordered 11/11/22 Ordered By: Nancy Baker Discharge Data Discharge Date/Time-TO BE ENTERED AT DEPARTURE: 11/11/22 11:30 OB:DS Summary Summary Vaginal Delivery Method: Spontaneaous Episiotomy Description: None Laceration Description: None Laceration Extension: N/A Contraception Discussed Contraception Discussed: Yes Contraceptive Plan: Undecided, [place] Infant Gender-Baby A: Male Status at Discharge Functional status at discharge: independent ambulation Overall status at discharge: patient is back to baseline Mental Status: mental status grossly normal Speech and Movement: speech and movement normal Mood: congruent mood Affect: normal affect Exam Physical Exam Vital signs: Temp Pulse Resp BP Pulse Ox 98.6 F 73 16 115/75 99 11/11/22 08:24 11/11/22 08:24 11/11/22 08:24 11/11/22 08:24 11/11/22 08:24 Respiratory Exam Respiratory Exam: Normal Cardiovascular Exam Cardiovascular Exam: Normal Fundal Exam Fundus: Below Umbilicus and Firm Extremities Exam Extremity Exam: Normal Skin Exam Skin Exam: Normal Psychiatric Exam Psychiatric Exam: Normal PFSH All Active Problems (Updated 11/09/22 @ 08:52 by Nancy Diaz CNM) care following vaginal delivery (Acute) HELLP syndrome (HELLP), third trimester (Acute) (Acute) Anxiety and depression (Chronic) Medical History (Updated 11/09/22 @ 08:52 by Nancy Diaz CNM) Acne (01/26/18) Allergic rhinitis Pollen and Dust Chronic headache Contraception (03/25/15) COVID-19 affecting in third trimester + antigen 09/06 + PCR 09/07 symptoms began 09/06, declined paxlovid Dysuria Family history of chromosomal abnormality 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 Perioral dermatitis Positive test Pyelectasis of fetus on ultrasound Right flank pain RSV infection at 18 weeks of Rubella non-immune status, antepartum Scoliosis Tobacco abuse (01/26/18) Surgical History [place] Teeth Extraction Family History Mother Headache Mental disorder Panic Attacks Paternal Grandfather Myocardial infarction Suddenly of Stroke or Heart Attack Stroke Paternal Grandmother Neoplasm Breast cancer Cancer neck cancer Maternal Aunt Cancer ovarian Maternal Aunt Cancer kidney cancer Maternal Grandmother Diabetes Social History Smoking/Tobacco Use Status: Former Tobacco Use Quit Date: 12/26/19 Tobacco: How many years used: 6 Smoking risk assessment performed?: Yes Drug use: Never Do you feel safe at home: Yes Do you feel safe in your relationship?: Yes Female Reproductive History Menstrual Duration of menses: 3-5 days control method: pills History History 1 Para 0 Hx # Term Pregnancies 0 Multiple births 0 Hx # Pregnancies 0 Ectopic pregnancies 0 AB induced 0 Hx Number of Living Children 0 AB spontaneous 0 DS: Data Vitals/I&O Vitals and I&O: Vital Signs Temperature 98.6 F 11/11/22 08:24 Temperature 97.9 F 11/08/22 16:30 Temperature Source Oral 11/11/22 08:24 Pulse 73 11/11/22 08:24 Pulse 86 11/08/22 16:30 Pulse Rhythm Regular 11/10/22 20:05 Respiratory Rate 16 11/11/22 08:24 Blood Pressure 115/75 11/11/22 08:24 Blood Pressure 136/91 11/08/22 16:30 Blood Pressure Mean 88 11/11/22 08:24 Pulse Oximetry 99 11/11/22 08:24 Oxygen Delivery Method Room Air 11/08/22 15:50 Oxygen Flow Rate 0 11/08/22 15:50 Pain Level 0 11/11/22 08:24 Comment Completed in magnesium sulfate flowsheet. VS WNL. 11/09/22 07:19 Intake & Output 11/10/22 11/10/22 11/11/22 11:59 23:59 11:59 Other: Urine Color Yellow Pale Data Completed and Pending Labs on day of discharge: Labs from last 24 hours 11/11/22 11/11/22 06:05 06:05 WBC 13.61 H RBC 4.13 Hgb 12.9 Hct 38.6 MCV 94 MCH 31.2 MCHC 33.4 RDW 13.2 Plt Count 145 MPV 11.4 H Sodium 140 Potassium 4.2 Chloride 103 Carbon Dioxide 30.9 Anion Gap 6.1 BUN 7 Creatinine 0.7 Est GFR (CKD-EPI 2020) 123.01 Glucose 79 Uric Acid 5.7 Calcium 9.2 Total Bilirubin 0.2 AST 40 H ALT 89 H Alkaline Phosphatase 187 H Total Protein 6.7 Albumin 2.4 L
== END 2022-11-11 11:30 | disposition home or self-care (01) | DRG 807 ==
LOC: OBS 14:53 → BCD 11-09 12:11
PROVIDERS: Advanced Practice Midwife; Admitting Provider Advanced Practice Midwife; PCP Nurse Practitioner; Visit Provider Advanced Practice Midwife
DX: O14.23 HELLP syndrome (HELLP), third trimester (principal); Z37.0 Single live birth; Z3A.37 37 weeks gestation of pregnancy; O99.344 Other mental disorders complicating childbirth; F41.8 Other specified anxiety disorders; O35.EXX0 Maternal care for other (suspected) fetal abnormality and damage, fetal genitourinary anomalies, not applicable or unspecified
CPT/HCPCS: 36415; 80053; 83690; 85027; 85384; 86850; 86900; 86901; 59025; 82150; 82565; 83735; 84156; 84550; 85025; 85610; 85730; 88307; J3475

== ENCOUNTER 2022-11-25 01:31 | Outpatient (CLI) | payer BC, SELFPAY ==
[2022-11-25 15:57] LABS: HCT 38.8 % (36.0-46.0); MCH 31.4 pg (27.0-33.0); MCHC 33.5 % (32.0-36.0); MCV 94 fL (80-95); MPV 9.6 fL (8.0-11.0); Platelet Count 437 10^3/uL (130-400); RBC 4.14 10^6/uL (3.93-5.22); RDW 12.7 % (11.7-14.6); RDW-SD 43.6 fL; WBC 8.51 10^3/uL (4.4-10.8)
[2022-11-25 16:23] LABS: ALT 48 U/L (14-59); AST 27 U/L (15-37); Albumin 3.3 g/dL (3.4-5.0); Alkaline Phosphatase 113 U/L (46-116); Anion Gap 7.8 mmol/L (3-11); BUN 11 mg/dL (7-18); Bilirubin, Total 0.2 mg/dL (0.2-1.0); CO2 29.2 mmol/L (21.0-32.0); CREATININE 0.6 mg/dL (0.55-1.02); Calcium 9.2 mg/dL (8.5-10.1); Chloride 105 mmol/L (98-107); Estimated GFR 127.67 (mL/min/1.73m2); Glucose 86 mg/dL (74-106); Potassium 3.7 mmol/L (3.5-5.1); Sodium 142 mmol/L (136-145)
== END 2022-11-25 01:32 | disposition home or self-care (01) ==
LOC: LBO 01:31
PROVIDERS: PCP Nurse Practitioner; Visit Provider Advanced Practice Midwife
DX: O14.23 HELLP syndrome (HELLP), third trimester (principal); Z3A.00 Weeks of gestation of pregnancy not specified; O26.893 Other specified pregnancy related conditions, third trimester; R79.89 Other specified abnormal findings of blood chemistry
CPT/HCPCS: 36415; 80053; 85027

== ENCOUNTER 2023-05-19 05:03 | Outpatient (CLI) | payer BC, SELFPAY ==
[2023-05-19 15:03] LABS: Abs Immature Grans 0.02 10^3/uL (0.0-0.06); Absolute Basophil Count 0.08 10^3/uL (0.0-0.2); Absolute Eosinophil Count 0.21 10^3/uL (0.0-0.7); Absolute Lymphocyte Count 2.72 10^3/uL (1.2-3.4); Absolute Monocyte Count 0.59 10^3/uL (0.1-0.8); Absolute Neutrophil Count 3.55 10^3/uL (1.2-6.7); Basophils % 1.1; Eosinophils % 2.9; HCT 38.5 % (36.0-46.0); HGB 12.9 g/dL (11.2-15.7); Immature Grans % 0.3; Lymphocytes % 37.9; MCH 30.7 pg (27.0-33.0); MCHC 33.5 % (32.0-36.0); MCV 92 fL (80-95); MPV 10.4 fL (8.0-11.0); Monocytes % 8.2; Neutrophils % 49.6; Platelet Count 313 10^3/uL (130-400); RDW 12.3 % (11.7-14.6); RDW-SD 40.5 fL; WBC 7.17 10^3/uL (4.4-10.8)
[2023-05-19 16:53] LABS: TSH (W/Ref FT4) 1.59 uIU/mL (0.36-3.74)
== END 2023-05-19 05:04 | disposition home or self-care (01) ==
LOC: LBO 05:03
PROVIDERS: Advanced Practice Midwife; PCP Nurse Practitioner; Visit Provider Nurse Practitioner
DX: R63.4 Abnormal weight loss (principal)
CPT/HCPCS: 36415; 84443; 85025

== ENCOUNTER 2024-03-28 05:02 | Outpatient (CLI) | payer BC, SELFPAY ==
[2024-03-28 09:56] LABS: Panorama Kit Sent via Fed Ex
[2024-03-28 10:31] LABS: Abs Immature Grans 0.02 10^3/uL (0.0-0.06); Absolute Basophil Count 0.04 10^3/uL (0.0-0.2); Absolute Eosinophil Count 0.08 10^3/uL (0.0-0.7); Absolute Lymphocyte Count 2.24 10^3/uL (1.2-3.4); Absolute Neutrophil Count 4.78 10^3/uL (1.2-6.7); Basophils % 0.5 %; HCT 38.4 % (36.0-46.0); HGB 12.9 g/dL (11.2-15.7); Immature Grans % 0.3 %; Lymphocytes % 28.9 %; MCH 30.6 pg (27.0-33.0); MCHC 33.6 % (32.0-36.0); MCV 91 fL (80-95); MPV 10.4 fL (8.0-11.0); Monocytes % 7.7 %; Neutrophils % 61.6 %; Platelet Count 262 10^3/uL (130-400); RBC 4.22 10^6/uL (3.93-5.22); RDW 11.8 % (11.7-14.6); RDW-SD 39.2 fL; WBC 7.76 10^3/uL (4.4-10.8)
[2024-03-28 11:09] LABS: ALT 21 U/L (14-59); AST 13 U/L (15-37); Albumin 3.6 g/dL (3.4-5.0); Alkaline Phosphatase 53 U/L (46-116); Anion Gap 10.3 mmol/L (3-11); BUN 8 mg/dL (7-18); Bilirubin, Total 0.24 mg/dL (0.2-1.0); CO2 23.7 mmol/L (21.0-32.0); CREATININE 0.5 mg/dL (0.55-1.02); Calcium 9.1 mg/dL (8.5-10.1); Chloride 104 mmol/L (98-107); Estimated GFR 132.57 (mL/min/1.73m2); Glucose 70 mg/dL (74-106); Potassium 3.5 mmol/L (3.5-5.1); Sodium 138 mmol/L (136-145); Total Protein 7.3 g/dL (6.4-8.2)
[2024-03-28 18:52] LABS: Hepatitis B Surface Ag Negative (Negative)
[2024-03-28 19:30] LABS: Hepatitis C Ab w Rflx HCV PCR Negative (Negative)
[2024-03-28 19:33] LABS: HIV-1/2 Ag & Ab Screen Negative (Negative)
[2024-03-29 11:06] LABS: Varicella IgG Antibody Positive (See Note)
[2024-03-29 13:11] LABS: Rubella IgG Ab (UVM) Equivocal (See Note)
[2024-03-30 23:38] LABS: Syphilis IgG w/Reflex Nonreactive (Nonreactive)
[2024-04-02 17:04] LABS: Specimen WB Whole Blood
== END 2024-03-28 05:03 | disposition home or self-care (01) ==
LOC: LBO 05:02
PROVIDERS: PCP Nurse Practitioner; Visit Provider Advanced Practice Midwife
DX: Z34.91 Encounter for supervision of normal pregnancy, unspecified, first trimester (principal)
CPT/HCPCS: 36415; 80053; 81329; 86787; 86803; 86850; 86900; 86901; 87340; 87389; 85025; 86762; 86780

== ENCOUNTER 2024-03-28 09:41 | Outpatient (REF) | payer BC, SELFPAY ==
[2024-03-28 13:16] LABS: COMMENT (LAB VIEW ONLY) 166.26 mg/dL; PROTEIN 16.6 mg/dL; Prot/Crea Ur Ratio 0.09
[2024-03-29 12:51] LABS: Chlamydia Result Negative (Negative); GC Result Negative (Negative)
== END 2024-03-28 09:42 | disposition home or self-care (01) ==
LOC: LBN 09:41
PROVIDERS: PCP Nurse Practitioner; Visit Provider Advanced Practice Midwife
DX: Z34.91 Encounter for supervision of normal pregnancy, unspecified, first trimester (principal); O09.291 Supervision of pregnancy with other poor reproductive or obstetric history, first trimester
CPT/HCPCS: 87491; 87591; 82565; 84156; 87086

== ENCOUNTER 2024-04-25 01:56 | Outpatient (CLI) | payer BC, SELFPAY ==
[2024-04-27 14:15] LABS: AFP 28.6 ng/mL; Calculated age at EDD 26 years; Cigarette smoking status non-Smoker; GA used in risk estimate Dates estimate; IVF Pregnancy No; Initial or repeat testing Initial testing; Insulin dependent diabetes No; Maternal Weight 120 lbs; Number of Fetuses 1; Physician Phone Number 802-748-7300; Prev Pregnancy w/NTD No; RECOMMENDED FOLLOW UP None.; Results Summary Normal risk
== END 2024-04-25 01:57 | disposition home or self-care (01) ==
LOC: LBO 01:56
PROVIDERS: PCP Nurse Practitioner; Visit Provider Advanced Practice Midwife
DX: Z34.91 Encounter for supervision of normal pregnancy, unspecified, first trimester (principal)
CPT/HCPCS: 36415; 82105

== ENCOUNTER 2024-07-11 04:12 | Outpatient (CLI) | payer BC, SELFPAY ==
[2024-07-11 16:05] LABS: Glucose,1 Hr (Glucola) 95 mg/dL (80-140)
== END 2024-07-11 04:13 | disposition home or self-care (01) ==
LOC: LBO 04:12
PROVIDERS: PCP Nurse Practitioner; Visit Provider Obstetrics & Gynecology Maternal & Fetal Medicine
DX: O36.5990 Maternal care for other known or suspected poor fetal growth, unspecified trimester, not applicable or unspecified (principal)
CPT/HCPCS: 36415; 82950